=== PATIENT | female | born 1975 | race Caucasian/White ===

== ENCOUNTER 2016-08-09 19:32 | Emergency (ER) | payer MEDICAID ==
[~2016-08-09] VITALS: Ht 162.6 cm; Wt 124.3 kg
[~2016-08-09 19:32] MED LIST: ACHYD1T PO; ALBU0.632 IH; ALBU17AE3; ALBU8.5H2 IH; ALPR2TAB2 PO; AMOX1TAB39 PO; AMPH20TA2 PO; CETI10CA PO; Docusate Sodium PO; ESZO1TAB2 PO; FLT05NA16 NS; HYDR-3730 PO; Ibuprofen PO; MNTL10T PO; NFPRILOC40 PO; NPR250TRX; PNT40TEC PO; PROP1TAB77; SMTR50T PO; TRAM-21 PO; VILA10TA PO; XANAX; ZLP10T PO
[2016-08-09] MEDS ORDERED: KETOROLAC 30 MG/ML VIAL IVP ONE (20:30)
[2016-08-09] MEDS ORDERED: DEXAMETHASONE 4 MG/ML SDV (DECADRON) IH ONE (20:45)
[2016-08-09] MEDS ORDERED: NS 100 ML (IVPB) BAG IV ONE (20:45)
[2016-08-09] MEDS ORDERED: RT-ALBUTEROL/IPRATROPIUM 3 ML (DUONEB) VIAL INH ONE (20:45)
[2016-08-09] MEDS ORDERED: IOHEXOL 350 MG/ML 150 ML (OMNIPAQUE 350) VIAL IV ONE (20:45)
--- NOTE | 2016-08-09 21:11 | Diagnostic Imaging Report ---
INDICATION: Chest pain and cough PA and lateral chest obtained at 9:10 p.m. Heart and mediastinal silhouette are normal in appearance. There is question of some minimal infiltrate in the left lung base posteriorly, best seen on the lateral view. There is no pneumothorax or pleural fluid. IMPRESSION: Question minimal infiltrate in left lung base posteriorly, best seen on the lateral view. Poor inspiration. No pneumothorax or pleural fluid. Dictated by: Dictated on workstation # [id number]
--- NOTE | 2016-08-09 21:39 | Diagnostic Imaging Report ---
INDICATION: Cough and left-sided chest pain CT chest, abdomen, and pelvis obtained without IV contrast. CT chest findings: There are no enlarged mediastinal or hilar nodes seen without contrast. There are no enlarged axillary nodes. There is no pleural or pericardial fluid. There is no overt bony abnormality in the chest. Lung parenchymal windows demonstrated no evidence of infiltrate and the area questioned on the chest x-ray is not apparent on this study. CT abdomen and pelvis findings: The liver shows no focal mass. There is a calcified granuloma in the liver. There is evidence of previous cholecystectomy. Spleen, adrenals, and pancreas are normal. The kidneys bilaterally are unremarkable. There is a small fat-containing ventral hernia just to the right of midline. The visualized bowel loops are unremarkable. Patient appears to have had prior hysterectomy. IMPRESSION: CT chest shows no focal abnormality. The area in question on the chest x-ray shows no corresponding abnormality on CT and therefore is likely artifactual. There is no acute process in the chest. CT of the abdomen and pelvis demonstrates evidence of previous cholecystectomy and hysterectomy. There is a calcified granuloma in the liver. There is no acute inflammatory process or abnormal fluid collection. There is a small ventral hernia in the anterior abdominal wall containing fat. Dictated by: Dictated on workstation # [id number]
[2016-08-09] MEDS ORDERED: BENZ-13 PO (21:51)
[2016-08-09] MEDS ORDERED: D-ME118S7 PO (21:51)
[2016-08-09] MEDS ORDERED: TRAM-42 PO (21:51)
--- NOTE | 2016-08-09 21:51 | ED General ---
General Chief Complaint: Chest Wall/Rib Pain Stated Complaint: PAIN COUGHING Nursing Triage Note: Stated she was coughing 4 days ago and had sharp pain to left upper abd quad. States the pain is cont but increases with coughing. S/O states that that the pt shakes when coughing and urinated on herself because of the pain. Nursing Sepsis Screen: No Definite Risk Source of Information: Patient, Other (MALE S.O. TRIES TO DO ALL TALKING FOR PT ) History of Present Illness Time Seen by Provider: 20:20 Initial Comments PT ARRIVES VIA POV FROM HOME STATES SHE HAS HAD A NON-PRODUCTIVE COUGH X 2 WEEKS, WORSE X 4 DAYS STATES COUGHING CAUSES SEVERE PAIN IN UPPER ABDOMEN, ESPECIALLY ON THE LEFT SIDE AND THINKS THIS AREA IS SWOLLEN--BEGAN AROUND 1500 TODAY. PAIN IS MOSTLY WITH COUGHING AND IS SHARP AND SEVERE WITH COUGHING, BUT CONSTANT DULL ACHE IN AREA WELL NO FEVER NO CHEST PAIN PT HAS COPD AND ASTHMA--USES ADVAIR, SPIRIVA, COMBIVENT, ALBUTEROL, FLOVENT INHALERS, AND ALBUTEROL NEBULIZER--STATES SHE LAST USED THEM AT LEAST 5 HOURS AGO. PT CONTINUES TO SMOKE 1 PPD WOKE UP PRIOR TO ARRIVAL AND WAS HAVING SEVERE PAIN IN UPPER ABDOMEN FROM COUGHING AND RUSHED STRAIGHT HERE, DID NOT USE INHALERS OR NEBULIZER PRIOR TO ARRIVAL PT ALSO HAS PHENERGAN WITH CODEINE FOR COUGH--BUT RAN OUT AT 1500 TODAY STATES SHE SHAKES AND HAS URINATED ON HERSELF DUE TO COUGHING AND THE PAIN PT HAS HYDROCODONE AT HOME BUT DID NOT TAKE ANY FOR THIS PAIN ADDITIONALLY, PT TAKES SINGULAIR, ZYRTEC AND FLONASE PT WAS SEEN BY DR. HELLER A COUPLE OF WEEKS AGO FOR THIS PROBLEM AND STATES ONE OF HER INHALERS WAS INCREASED, BUT HAS NO IDEA WHICH ONE--WAS GIVEN RX FOR PHENERGAN WITH CODEINE SAW DR. CALLAHAN'S LINEMAN A CLASS YESTERDAY FOR THIS PROBLEM AND WAS GIVEN RX FOR AUGMENTIN AND PREDNISONE 10 MG DAILY PCP: DR. HELLER CAGE CASHIER: DR. CALLAHAN Allergies and Home Medications Allergies Coded Allergies: azithromycin (Unverified Allergy, Unknown, RASH, 08/09/16) cefdinir (Verified Allergy, Unknown, 08/09/16) ciprofloxacin (Verified Allergy, Unknown, 08/09/16) thiopental (Unverified Allergy, Unknown, 08/09/16) Home Medications Albuterol 8.5 Gm Hfa.aer.ad, 2 PUFF IH BID, (Reported) Albuterol Sulfate 0.63 Mg/3 Ml Vial.neb, 1 EACH IH Q 4 - 6 HRS PRN PRN for SHORTNESS OF BREATH, (Reported) PRN SHORTNESS OF BREATH Alprazolam 2 Mg Tablet, 2 MG PO QID, (Reported) Amox Tr/Potassium Clavulanate 1 Each Tab.sr.12h, 1 EACH PO BID, (Reported) Amphet Asp/Amphet/D-Amphet 20 Mg Tablet, 20 MG PO BID, (Reported) Benzonatate 100 Mg Capsule, 1-2 TAB PO TID, #30 Prescribed by: MATY RADFORD on 08/09/162150 Cetirizine Hcl 10 Mg Capsule, 10 MG PO DAILY, (Reported) D-Methorphan Hb/Prometh HCl 118 Ml Syrup, 5-10 ML PO Q4H, #120 Prescribed by: MATY RADFORD on 08/09/162150 Eszopiclone 1 Mg Tablet, 1 MG PO HS PRN for SLEEP, (Reported) Fluticasone Propionate 16 Gm [place], 2 SPRAYS NS DAILY, (Reported) Hydrocodone Bit/Acetaminophen 1 Ea Tab, 1-2 EA PO Q4H PRN for MORE SEVERE PAIN, #60 Prescribed by: BRIANDA DALY on 04/04/14 0751 Hydrocodone/Acetaminophen 1 Each Tablet, 1 EACH PO BID, (Reported) Montelukast Sodium 10 Mg Tab, 10 MG PO DAILY, (Reported) Pantoprazole Sod 40 Mg Tab, 40 MG PO DAILY, (Reported) Prednisone 10 Mg Tab, 0 PO UD, #30 40 MG DAILY X 3 DAYS, 30 MG DAILY X 3 DAYS, 20 MG DAILY X 3 DAYS, 10 MG DAILY X 3 DAYS Prescribed by: MATY RADFORD on 08/09/162311 Sumatriptan Succinate 50 Mg Tablet, 0 PO UD, (Reported) 1 TAB AT ONSET OF ELIZABETH, MAY REPEAT X 1 IN 2 HOURS Tramadol HCl 50 Mg Tablet, 50 MG PO Q4H, #20 Prescribed by: MATY RADFORD on 08/09/162150 Tramadol Hcl 50 Mg Tablet, 50 MG PO BID, (Reported) [Docusate Sodium] 100 MG CAP, 100 MG PO BID, #60 Prescribed by: BRIANDA DALY on 04/04/14 0751 [Ibuprofen] 800 MG TAB, 800 MG PO Q6HR, #60 Prescribed by: BRIANDA DALY on 04/04/14 0751 Constitutional: no symptoms reported, No chills, No diaphoresis, No dizziness, No fever EENTM: no symptoms reported Respiratory: see HPI, cough, short of breath, wheezing Cardiovascular: no symptoms reported Gastrointestinal: no symptoms reported, abdominal pain, No nausea, No vomiting Genitourinary: see HPI, No dysuria, incontinence Musculoskeletal: no symptoms reported Skin: no symptoms reported Psychiatric/Neurological: No Symptoms Reported Hematologic/Lymphatic: No Symptoms Reported Past Rhpripa-Jselyk-Uflmhx Hx Patient Social History Alcohol Use: Denies Use Recreational Drug Use: No Smoking Status: Current Everyday Smoker (1 PPD) Type Used: Cigarettes 2nd Hand Smoke Exposure: Yes Recent Foreign Travel: No Contact w/Someone Who Travel: No Recent Infectious Disease Expo: No Recent Hopitalizations: No Immunizations Up To Date Tetanus Booster (TDap): Less than 5yrs Seasonal Allergies Seasonal Allergies: Yes Surgeries HX Surgeries: Yes (CERCLAGE X3, D&C, EGD, HYST/OVARIES INTACT) Surgeries: Gallbladder, Hysterectomy Respiratory Hx Respiratory Disorders: Yes Respiratory Disorders: Asthma, Chronic Bronchitis, COPD Cardiovascular Hx Cardiac Disorders: No Neurological Hx Neurological Disorders: Yes Neurological Disorders: Headaches /Migraines Reproductive System Hx Reproductive Disorders: Yes (DUB) Female Reproductive Disorders: Menstrual Problems SHIRT FOLDER History: Hysterectomy Genitourinary Hx Genitourinary Disorders: No Gastrointestinal Hx Gastrointestinal Disorders: Yes (freq nausea) Gastrointestinal Disorders: Chronic Constipation (FROM NARCOTIC USE) Musculoskeletal Hx Musculoskeletal Disorders: Yes (MUSCLE PAIN) Endocrine Hx Endocrine Disorders: Yes (MORBID OBESITY) HEENT HX ENT Disorders: Yes (BROKEN TEETH) Cancer Hx Cancer: No Psychosocial Hx Psychiatric Problems: Yes Behavioral Health Disorders: ADD/ADHD, Anxiety, Depression Integumentary HX Skin/Integumentary Disorder: No Blood Transfusions Hx Blood Disorders: No Physical Exam Vital Signs Vital Sign - Last 12Hours 08/09/16 19:57 Temp 97.6 Pulse 70 Resp 20 B/P (MAP) 114/62 Pulse Ox 93 Capillary Refill : Less Than 3 Seconds General Appearance: No Apparent Distress, Obese, Other (VERY DRAMATIC. REEKS OF CIGARETTES) HEENT: PERRL/EOMI Neck: Full Range of Motion, Normal Inspection, Non Tender, Supple Respiratory: No Accessory Muscle Use, No Respiratory Distress, Wheezing ( DIFFUSE COARSE EXPIRATORY WHEEZING IN ALL LUNG ROSE) Cardiovascular: Regular Rate, Rhythm, No Edema, No Murmur Gastrointestinal: Tenderness (EPIGASTRIC AND RUQ), Other (EXAM LIMITED DUE TO BODY HABITUS) Extremity: Normal Range of Motion, No Calf Tenderness, No Pedal Edema Neurologic/Psychiatric: Alert, Oriented x3, No Motor/Sensory Deficits, superintendent menagerie II- XII Norm as Tested Skin: Normal Color, Warm/Dry, Tattoos/Piercings (TATTOOS) Progress/Results/Core Measures Results/Orders My Orders Orders - MATY RADFORD DO Saline Lock/Iv-Start (08/09/16 20:30) Monitor-Rhythm Ecg Trace Only (08/09/16 20:30) Chest Pa/Lat (2 View) (08/09/16 20:30) Ketorolac Injection (Toradol Injection) (08/09/16 20:30) Albuterol/Ipra Inhalation Soln (Duoneb I (08/09/16 20:45) Dexamethasone Injection (Decadron Inject (08/09/16 20:45) Rt Request For Service (08/09/16 20:31) Svn Sm Volume Nebulizer Rt-Rfs (08/09/16 20:31) Iohexol Injection (Omnipaque 350 Mg/Ml 1 (08/09/16 20:45) Ns (Ivpb) (Sodium Chloride 0.9% Ivpb Bag (08/09/16 20:45) Ct Chest/Abdomen/Pelvis Wo (08/09/16 20:30) Medications Given in ED Current Medications Medications Dose Ordered Sig/Bright Route Start Time Stop Time Status Last Admin Dose Admin Albuterol/ Ipratropium 3 ml ONCE ONCE INH 08/09/16 20:45 08/09/16 20:46 DC 08/09/16 21:48 3 ML Dexamethasone Sodium Phosphate 20 mg ONCE ONCE IH 08/09/16 20:45 08/09/16 20:46 DC 08/09/16 21:48 20 MG Vital Signs/I&O Vital Sign - Last 12Hours 08/09/16 08/09/16 08/09/16 19:57 21:49 22:10 Temp 97.6 98.0 Pulse 70 100 Resp 20 20 B/P (MAP) 114/62 Pulse Ox 93 94 95 Blood Pressure Mean: 79 Progress Note : Progress Note PT REFUSED IV STICK/ LAB AND IV CONTRAST FOR CT DECREASE IN WHEEZING AFTER NEBULIZER TREATMENT Diagnostic Imaging Comments CXR--LIMITED STUDY, QUESTIONABLE LLL INFILTRATE--PENDING CT RESULTS--PER RADIOLOGIST REPORT @ 2127 CT CHEST/ABDOMEN/PELVIS--NO ACUTE PROCESS, SMALL VENTRAL HERNIA, CONTAINING FAT , ABOVE UMBILICUS--PER RADIOLOGIST REPORT @ 2139 Reviewed: Reviewed by Me Departure Impression Impression: Primary Impression: COPD (chronic obstructive pulmonary disease) with acute bronchitis Additional Impressions: Tobacco use Abdominal wall strain Hernia of anterior abdominal wall Disposition: HOME, SELF-CARE Condition: Stable Departure-Patient Inst. Referrals: MATY HELLER MD (PCP/Family) Primary Care Physician Patient Instructions: Abdominal Muscle Strain (DC), Abdominal Wall Hernias, Acute Bronchitis, Adult (DC), COPD Including Emphysema (DC) Add. Discharge Instructions: USE YOUR INHALERS AND NEBULIZER PRESCRIBED CONTINUE AUGMENTIN 875 MG TWICE A DAY X 10 DAYS INCREASE YOUR PREDNISONE TO 40 MG DAILY FOR 3 DAYS, THEN 30 MG DAILY FOR 3 DAYS , THEN 20 MG DAILY FOR 3 DAYS, THEN 10 MG DAILY X 3 DAYS CONTINUE ALL YOUR REGULAR MEDICATIONS PRESCRIBED FOLLOW UP WITH DR. CALLAHAN ON THURSDAY IF NO BETTER All discharge instructions reviewed with patient and/or family. Voiced understanding. Scripts Prednisone (Prednisone) 10 Mg Tab 0 PO UD, #30 TAB 40 MG DAILY X 3 DAYS, 30 MG DAILY X 3 DAYS, 20 MG DAILY X 3 DAYS, 10 MG DAILY X 3 DAYS Prov: MATY RADFORD DO 08/09/16 Tramadol HCl (Ultram) 50 Mg Tablet 50 MG PO Q4H, #20 TAB Prov: MATY RADFORD DO 08/09/16 Benzonatate (Tessalon Perle) 100 Mg Capsule 1-2 TAB PO TID for Cough, #30 CAP Prov: MATY RADFORD DO 08/09/16 D-Methorphan Hb/Prometh HCl (Promethazine-Dm Syrup) 118 Ml Syrup 5-10 ML PO Q4H for Cough, #120 ML Prov: MATY RADFORD DO 08/09/16 MATY RADFORD DO Aug 09, 2016 21:51
[2016-08-09 22:10] VITALS: BP 141/63
[2016-08-09] MEDS ORDERED: PRD10T PO (23:12)
--- OUTSIDE RECORDS SUMMARY | 2016-09-14 05:29 | XMS REPORT | Continuity of Care Document ---
Author Author [facility]ly [facility] Address Unknown Phone Unavailable Allergies Active Description Code Type Severity Reaction Onset Reported/Identified Relationship to Patient Clinical Status Yes Omnicef Drug Allergy N/A N/A 05/31/2008 Yes Omnicef Drug Allergy 05/31/2008 Yes Cipro Drug Allergy N/A N/A 06/15/2008 Yes Zithromax Drug Allergy N/A N/A 06/15/2008 Yes Cipro Drug Allergy 06/15/2008 Yes Zithromax Drug Allergy 06/15/2008 Yes Strattera 10 mg capsule Drug Allergy N/A N/A 04/11/2013 Yes azithromycin [id number] Drug Allergy Unknown RASH 08/09/2016 Yes cefdinir [id number] Drug Allergy Unknown N/A 08/09/2016 Yes ciprofloxacin [id number] Drug Allergy Unknown N/A 08/09/2016 Yes thiopental [id number] Drug Allergy Unknown N/A 08/09/2016 Medications Problems Date Dx Coded Attending Type Code Diagnosis Diagnosed By 11/10/2007 ANDREI CORTES APRN 477.9 Hayfever 11/10/2007 ANDREI CORTES APRN 786.2 Cough 11/10/2007 477.9 Hayfever 11/10/2007 786.2 Cough 11/10/2007 477.9 Hayfever 11/10/2007 786.2 Cough 11/10/2007 477.9 Hayfever 11/10/2007 786.2 Cough 11/10/2007 477.9 Hayfever 11/10/2007 786.2 Cough 11/10/2007 477.9 Hayfever 11/10/2007 786.2 Cough 11/10/2007 477.9 Hayfever 11/10/2007 786.2 Cough 11/10/2007 ANDREI CORTES APRN 477.9 Hayfever 11/10/2007 ANDREI CORTES APRN 786.2 Cough 11/10/2007 CORTESJT FULTONANDREI 477.9 Hayfever 11/10/2007 CORTES APRN, ANDREI VANESSA 786.2 Cough 11/10/2007 NICHOLSON DO, EROS K 477.9 Hayfever 11/10/2007 NICHOLSON DO, EROS K 786.2 Cough 11/10/2007 NICHOLSON DO, EROS K 477.9 Hayfever 11/10/2007 NICHOLSON DO, EROS K 786.2 Cough 11/10/2007 LATRICIA HURTADO MD 477.9 Hayfever 11/10/2007 LATRICIA HURTADO MD 786.2 Cough 11/10/2007 MADL VIDEO CAMERA OPERATOR, BIBI L 477.9 Hayfever 11/10/2007 MADL VIDEO CAMERA OPERATOR, BIBI L 786.2 Cough 11/10/2007 NICHOLSON DO, EROS K 477.9 Hayfever 11/10/2007 NICHOLSON DO, EROS K 786.2 Cough 11/10/2007 NICHOLSON DO, EROS K 477.9 Hayfever 11/10/2007 NICHOLSON DO, EROS K 786.2 Cough 11/10/2007 MADL VIDEO CAMERA OPERATOR, BIBI L 477.9 Hayfever 11/10/2007 MADL VIDEO CAMERA OPERATOR, BIBI L 786.2 Cough 11/10/2007 MADL VIDEO CAMERA OPERATOR, BIBI L 477.9 Hayfever 11/10/2007 MADL VIDEO CAMERA OPERATOR, BIBI L 786.2 Cough 11/10/2007 BROOK FULTON, CAROLE J 477.9 Hayfever 11/10/2007 BROOK FULTON, CAROLE J 786.2 Cough 11/10/2007 MOISES FLORES, ZACH Robin 477.9 Hayfever 11/10/2007 MOISES FLORES, ZACH Robin 786.2 Cough 05/26/2008 SOPHIA FULTON ANDREI VANESSA 466.0 Acute Bronchitis 05/26/2008 466.0 Acute Bronchitis 05/26/2008 466.0 Acute Bronchitis 05/26/2008 466.0 Acute Bronchitis 05/26/2008 466.0 Acute Bronchitis 05/26/2008 466.0 Acute Bronchitis 05/26/2008 466.0 Acute Bronchitis 05/26/2008 SOPHIA [place] ANDREI VANESSA 466.0 Acute Bronchitis 05/26/2008 S[place]IA [place] ANDREI RASHEEDA 466.0 Acute Bronchitis 05/26/2008 NICHOLSON DO, EROS K 466.0 Acute Bronchitis 05/26/2008 NICHOLSON DO, EROS K 466.0 Acute Bronchitis 05/26/2008 BRYANT ADAMS, LATRICIA 466.0 Acute Bronchitis 05/26/2008 MADL VIDEO CAMERA OPERATOR, BIBI L 466.0 Acute Bronchitis 05/26/2008 NICHOLSON DO, EROS K 466.0 Acute Bronchitis 05/26/2008 NICHOLSON DO, EROS K 466.0 Acute Bronchitis 05/26/2008 MADL VIDEO CAMERA OPERATOR, BIBI L 466.0 Acute Bronchitis 05/26/2008 MADL VIDEO CAMERA OPERATOR, BIBI L 466.0 Acute Bronchitis 05/26/2008 BROOK FULTON, CAROLE Henderson 466.0 Acute Bronchitis 05/26/2008 MOISES FLORES, ZACH Robin 466.0 Acute Bronchitis 06/15/2008 SOPHIA [place] ANDREI RASHEEDA 300.02 GENERALIZED ANXIETY DISORDER 06/15/2008 ANDREI CORTES APRN 616.10 Vaginitis Nonspecific 06/15/2008 SOPHIA [place] ANDREI RASHEEDA V72.31 Cervix Sample Taken For Pap Smear 06/15/2008 SOPHIA [place] ANDREI RASHEEDA V74.5 Visit For: Screening Exam Bact/ spirochetal Venereal Disease 06/15/2008 300.02 GENERALIZED ANXIETY DISORDER 06/15/2008 616.10 Vaginitis Nonspecific 06/15/2008 V72.31 Cervix Sample Taken For Pap Smear 06/15/2008 V74.5 Visit For: Screening Exam Bact/spirochetal Venereal Disease 06/15/2008 300.02 GENERALIZED ANXIETY DISORDER 06/15/2008 616.10 Vaginitis Nonspecific 06/15/2008 V72.31 Cervix Sample Taken For Pap Smear 06/15/2008 V74.5 Visit For: Screening Exam Bact/spirochetal Venereal Disease 06/15/2008 300.02 GENERALIZED ANXIETY DISORDER 06/15/2008 616.10 Vaginitis Nonspecific 06/15/2008 V72.31 Cervix Sample Taken For Pap Smear 06/15/2008 V74.5 Visit For: Screening Exam Bact/spirochetal Venereal Disease 06/15/2008 300.02 GENERALIZED ANXIETY DISORDER 06/15/2008 616.10 Vaginitis Nonspecific 06/15/2008 V72.31 Cervix Sample Taken For Pap Smear 06/15/2008 V74.5 Visit For: Screening Exam Bact/spirochetal Venereal Disease 06/15/2008 300.02 GENERALIZED ANXIETY DISORDER 06/15/2008 616.10 Vaginitis Nonspecific 06/15/2008 V72.31 Cervix Sample Taken For Pap Smear 06/15/2008 V74.5 Visit For: Screening Exam Bact/spirochetal Venereal Disease 06/15/2008 300.02 GENERALIZED ANXIETY DISORDER 06/15/2008 616.10 Vaginitis Nonspecific 06/15/2008 V72.31 Cervix Sample Taken For Pap Smear 06/15/2008 V74.5 Visit For: Screening Exam Bact/spirochetal Venereal Disease 06/15/2008 SOPHIA [place] ANDREI AVNESSA 300.02 GENERALIZED ANXIETY DISORDER 06/15/2008 SOP[place]IA [place] ANDREI VANESSA 616.10 Vaginitis Nonspecific 06/15/2008 SOPHIA [place] ANDREI VANESSA V72.31 Cervix Sample Taken For Pap Smear 06/15/2008 SOPHIA [place] ANDREI VANESSA V74.5 Visit For: Screening Exam Bact/ spirochetal Venereal Disease 06/15/2008 SOPHIA [place] ANDREI VANESSA 300.02 GENERALIZED ANXIETY DISORDER 06/15/2008 SOP[place]IA [place] ANDREI VANESSA 616.10 Vaginitis Nonspecific 06/15/2008 SOPHIA [place] ANDREI VANESSA V72.31 Cervix Sample Taken For Pap Smear 06/15/2008 SOPHIA [place] ANDREI VANESSA V74.5 Visit For: Screening Exam Bact/ spirochetal Venereal Disease 06/15/2008 EROS NICHOLSON DO 300.02 GENERALIZED ANXIETY DISORDER 06/15/2008 EROS NICHOLSON DO K 616.10 Vaginitis Nonspecific 06/15/2008 ISA NICHOLSON DOA K V72.31 Cervix Sample Taken For Pap Smear 06/15/2008 ISA NICHOLSON DOA K V74.5 Visit For: Screening Exam Bact/spirochetal Venereal Disease 06/15/2008 ISA NICHOLSON DOA K 300.02 GENERALIZED ANXIETY DISORDER 06/15/2008 ISA NICHOLSON DOA K 616.10 Vaginitis Nonspecific 06/15/2008 ISA NICHOLSON DOA K V72.31 Cervix Sample Taken For Pap Smear 06/15/2008 ISA NICHOLSON DOA K V74.5 Visit For: Screening Exam Bact/spirochetal Venereal Disease 06/15/2008 LATRICIA HURTADO MD 300.02 GENERALIZED ANXIETY DISORDER 06/15/2008 LATRICIA HURTADO MD 616.10 Vaginitis Nonspecific 06/15/2008 LATRICIA HURTADO MD V72.31 Cervix Sample Taken For Pap Smear 06/15/2008 LATRICIA HURTADO MD V74.5 Visit For: Screening Exam Bact/spirochetal Venereal Disease 06/15/2008 VEENAL VIDEO CAMERA OPERATOR, BIBI L 300.02 GENERALIZED ANXIETY DISORDER 06/15/2008 MADL VIDEO CAMERA OPERATOR, BIBI L 616.10 Vaginitis Nonspecific 06/15/2008 MADL VIDEO CAMERA OPERATOR, BIBI L V72.31 Cervix Sample Taken For Pap Smear 06/15/2008 JOSE FULTON BIBI L V74.5 Visit For: Screening Exam Bact/spirochetal Venereal Disease 06/15/2008 EROS NICHOLSON DO K 300.02 GENERALIZED ANXIETY DISORDER 06/15/2008 EROS NICHOLSON DO K 616.10 Vaginitis Nonspecific 06/15/2008 ISA NICHOLSON DOA K V72.31 Cervix Sample Taken For Pap Smear 06/15/2008 EROS NICHOLSON DO K V74.5 Visit For: Screening Exam Bact/spirochetal Venereal Disease 06/15/2008 EROS NICHOLSON DO K 300.02 GENERALIZED ANXIETY DISORDER 06/15/2008 ISA NICHOLSON DOA K 616.10 Vaginitis Nonspecific 06/15/2008 ISA NICHOLSON DOA K V72.31 Cervix Sample Taken For Pap Smear 06/15/2008 EROS NICHOLSON DO K V74.5 Visit For: Screening Exam Bact/spirochetal Venereal Disease 06/15/2008 VEENAL VIDEO CAMERA OPERATOR, BIBI L 300.02 GENERALIZED ANXIETY DISORDER 06/15/2008 JOSE VIDEO CAMERA OPERATOR, BIBI L 616.10 Vaginitis Nonspecific 06/15/2008 MADL VIDEO CAMERA OPERATOR, BIBI L V72.31 Cervix Sample Taken For Pap Smear 06/15/2008 JOSE VIDEO CAMERA OPERATOR, BIBI L V74.5 Visit For: Screening Exam Bact/spirochetal Venereal Disease 06/15/2008 JOSE FULTON BIBI L 300.02 GENERALIZED ANXIETY DISORDER 06/15/2008 JOSE JEWEL FULTONA Blanca 616.10 Vaginitis Nonspecific 06/15/2008 BIBI GARCIA APRN V72.31 Cervix Sample Taken For Pap Smear 06/15/2008 VEENABIBI Rios APRN V74.5 Visit For: Screening Exam Bact/spirochetal Venereal Disease 06/15/2008 CAROLE DOE APRN 300.02 GENERALIZED ANXIETY DISORDER 06/15/2008 PRATIBHA DOE APRNA J 616.10 Vaginitis Nonspecific 06/15/2008 PRATIBHA DOE APRNA J V72.31 Cervix Sample Taken For Pap Smear 06/15/2008 CAROLE DOE APRN J V74.5 Visit For: Screening Exam Bact/ spirochetal Venereal Disease 06/15/2008 MOISES FLORES, ZACH Robin 300.02 GENERALIZED ANXIETY DISORDER 06/15/2008 MOISES PHD, ZACH A 616.10 Vaginitis Nonspecific 06/15/2008 MOISES FLORES, ZACH A V72.31 Cervix Sample Taken For Pap Smear 06/15/2008 MOISES FLORES, ZACH Robin V74.5 Visit For: Screening Exam Bact/ spirochetal Venereal Disease 07/12/2008 ANDREI CORTES APRN 078.11 Warts Genital 07/12/2008 078.11 Warts Genital 07/12/2008 078.11 Warts Genital 07/12/2008 078.11 Warts Genital 07/12/2008 078.11 Warts Genital 07/12/2008 078.11 Warts Genital 07/12/2008 078.11 Warts Genital 07/12/2008 ANDREI CORTES APRN 078.11 Warts Genital 07/12/2008 ANDREI CORTES APRN 078.11 Warts Genital 07/12/2008 EROS NICHOLSON DO 078.11 Warts Genital 07/12/2008 EROS NICHOLSON DO 078.11 Warts Genital 07/12/2008 LATRICIA HURTADO MD 078.11 Warts Genital 07/12/2008 BIBI GARCIA APRN 078.11 Warts Genital 07/12/2008 NICHOLSON DO, EROS K 078.11 Warts Genital 07/12/2008 NICHOLSON DO, EROS K 078.11 Warts Genital 07/12/2008 MADL VIDEO CAMERA OPERATOR, BIBI L 078.11 Warts Genital 07/12/2008 MADL VIDEO CAMERA OPERATOR, BIBI L 078.11 Warts Genital 07/12/2008 BROOK F[place]ON CAROLE J 078.11 Warts Genital 07/12/2008 MOISES FLORES, ZACH Robin 078.11 Warts Genital 09/14/2009 CORTES APRN, ANDREI VANESSA 461.0 Acute Maxillary Sinusitis 09/14/2009 [place] ANDREI VANESSA 493.90 ASTHMA UNSPECIFIED 09/14/2009 461.0 Acute Maxillary Sinusitis 09/14/2009 493.90 ASTHMA UNSPECIFIED 09/14/2009 461.0 Acute Maxillary Sinusitis 09/14/2009 493.90 ASTHMA UNSPECIFIED 09/14/2009 461.0 Acute Maxillary Sinusitis 09/14/2009 493.90 ASTHMA UNSPECIFIED 09/14/2009 461.0 Acute Maxillary Sinusitis 09/14/2009 493.90 ASTHMA UNSPECIFIED 09/14/2009 461.0 Acute Maxillary Sinusitis 09/14/2009 493.90 ASTHMA UNSPECIFIED 09/14/2009 461.0 Acute Maxillary Sinusitis 09/14/2009 493.90 ASTHMA UNSPECIFIED 09/14/2009 SOPHIA [place]OL[place], ANDREI KATZH 461.0 Acute Maxillary Sinusitis 09/14/2009 CORTES DONALDO, ANDREI KATZH 493.90 ASTHMA UNSPECIFIED 09/14/2009 SOPHIA [place] ANDREI KATZH 461.0 Acute Maxillary Sinusitis 09/14/2009 SOPHIA [place]OL[place], ANDREI KATZH 493.90 ASTHMA UNSPECIFIED 09/14/2009 NICHOLSON DO, EROS K 461.0 Acute Maxillary Sinusitis 09/14/2009 NICHOLSON DO, EROS K 493.90 ASTHMA UNSPECIFIED 09/14/2009 NICHOLSON DO, EROS K 461.0 Acute Maxillary Sinusitis 09/14/2009 NICHOLSON DO, EROS K 493.90 ASTHMA UNSPECIFIED 09/14/2009 LATRICIA HURTADO MD 461.0 Acute Maxillary Sinusitis 09/14/2009 LATRICIA HURTADO MD 493.90 ASTHMA UNSPECIFIED 09/14/2009 MADL VIDEO CAMERA OPERATOR, BIBI L 461.0 Acute Maxillary Sinusitis 09/14/2009 MADL VIDEO CAMERA OPERATOR, BIBI L 493.90 ASTHMA UNSPECIFIED 09/14/2009 NICHOLSON DO, EROS K 461.0 Acute Maxillary Sinusitis 09/14/2009 NICHOLSON DO, EROS K 493.90 ASTHMA UNSPECIFIED 09/14/2009 NICHOLSON DO, EROS K 461.0 Acute Maxillary Sinusitis 09/14/2009 NICHOLSON DO, EROS K 493.90 ASTHMA UNSPECIFIED 09/14/2009 MADL VIDEO CAMERA OPERATOR, BIBI L 461.0 Acute Maxillary Sinusitis 09/14/2009 MADL VIDEO CAMERA OPERATOR, BIBI L 493.90 ASTHMA UNSPECIFIED 09/14/2009 MADL VIDEO CAMERA OPERATOR, BIBI L 461.0 Acute Maxillary Sinusitis 09/14/2009 MADL VIDEO CAMERA OPERATOR, BIBI L 493.90 ASTHMA UNSPECIFIED 09/14/2009 BROOK VIDEO CAMERA OPERATOR, CAROLE J 461.0 Acute Maxillary Sinusitis 09/14/2009 BROOK VIDEO CAMERA OPERATOR, CAROLE J 493.90 ASTHMA UNSPECIFIED 09/14/2009 MOISES PHD, ZACH A 461.0 Acute Maxillary Sinusitis 09/14/2009 MOISES PHD, ZACH A 493.90 ASTHMA UNSPECIFIED 02/20/2010 ANDREI CORTES APRN 780.79 Malaise And Fatigue 02/20/2010 780.79 Malaise And Fatigue 02/20/2010 780.79 Malaise And Fatigue 02/20/2010 780.79 Malaise And Fatigue 02/20/2010 780.79 Malaise And Fatigue 02/20/2010 780.79 Malaise And Fatigue 02/20/2010 780.79 Malaise And Fatigue 02/20/2010 ANDREI CORTES APRN 780.79 Malaise And Fatigue 02/20/2010 ANDREI CORTES APRN 780.79 Malaise And Fatigue 02/20/2010 NICHOLSON DO, EROS K 780.79 Malaise And Fatigue 02/20/2010 NICHOLSON DO, EROS K 780.79 Malaise And Fatigue 02/20/2010 LATRICIA HURTADO MD 780.79 Malaise And Fatigue 02/20/2010 VEENAL VIDEO CAMERA OPERATOR, BIBI L 780.79 Malaise And Fatigue 02/20/2010 NICHOLSON DO EROS K 780.79 Malaise And Fatigue 02/20/2010 NICHOLSON DO, EROS K 780.79 Malaise And Fatigue 02/20/2010 VEENAL VIDEO CAMERA OPERATORBIBI Ho 780.79 Malaise And Fatigue 02/20/2010 BIBI GARCIA APRN L 780.79 Malaise And Fatigue 02/20/2010 CAROLE DOE APRN 780.79 Malaise And Fatigue 02/20/2010 MOISES PHD, ZACH Robin 780.79 Malaise And Fatigue 08/01/2010 CORTES DONALDO ANDREI VANESSA 305.1 TOBACCO ABUSE 08/01/2010 CORTES VIDEO CAMERA OPERATOR, ANDREI VANESSA 491.21 Bronchitis Aecb 08/01/2010 305.1 TOBACCO ABUSE 08/01/2010 491.21 Bronchitis Aecb 08/01/2010 305.1 TOBACCO ABUSE 08/01/2010 491.21 Bronchitis Aecb 08/01/2010 305.1 TOBACCO ABUSE 08/01/2010 491.21 Bronchitis Aecb 08/01/2010 305.1 TOBACCO ABUSE 08/01/2010 491.21 Bronchitis Aecb 08/01/2010 305.1 TOBACCO ABUSE 08/01/2010 491.21 Bronchitis Aecb 08/01/2010 305.1 TOBACCO ABUSE 08/01/2010 491.21 Bronchitis Aecb 08/01/2010 SOPHIA TOLENTINONANDREIH 305.1 TOBACCO ABUSE 08/01/2010 [place] ANDREI KATZH 491.21 Bronchitis Aecb 08/01/2010 CORTES VIDEO CAMERA OPERATOR, ANDREI KATZH 305.1 TOBACCO ABUSE 08/01/2010 [place] ANDREI KATZH 491.21 Bronchitis Aecb 08/01/2010 NICHOLSON DO, EROS K 305.1 TOBACCO ABUSE 08/01/2010 NICHOLSON DO, EROS K 491.21 Bronchitis Aecb 08/01/2010 NICHOLSON DO, EROS K 305.1 TOBACCO ABUSE 08/01/2010 NICHOLSON DO, EROS K 491.21 Bronchitis Aecb 08/01/2010 LATRICIA HURTADO MD 305.1 TOBACCO ABUSE 08/01/2010 LATRICIA HURTADO MD 491.21 Bronchitis Aecb 08/01/2010 BIBI GARCIA APRN 305.1 TOBACCO ABUSE 08/01/2010 MADL VIDEO CAMERA OPERATOR, BIBI L 491.21 Bronchitis Aecb 08/01/2010 NICHOLSON DO, EROS K 305.1 TOBACCO ABUSE 08/01/2010 NICHOLSON DO, EROS K 491.21 Bronchitis Aecb 08/01/2010 NICHOLSON DO, EROS K 305.1 TOBACCO ABUSE 08/01/2010 NICHOLSON DO, EROS K 491.21 Bronchitis Aecb 08/01/2010 MADL VIDEO CAMERA OPERATOR, BIBI L 305.1 TOBACCO ABUSE 08/01/2010 MADL VIDEO CAMERA OPERATOR, BIBI L 491.21 Bronchitis Aecb 08/01/2010 MADL VIDEO CAMERA OPERATOR, BIBI L 305.1 TOBACCO ABUSE 08/01/2010 MADL VIDEO CAMERA OPERATOR, BIBI L 491.21 Bronchitis Aecb 08/01/2010 BROOK VIDEO CAMERA OPERATOR, CAROLE J 305.1 TOBACCO ABUSE 08/01/2010 BROOK DONALDO CAROLE J 491.21 Bronchitis Aecb 08/01/2010 MOISES FLORES, ZACH Robin 305.1 TOBACCO ABUSE 08/01/2010 MOISES FLORES, ZACH Robin 491.21 Bronchitis Aecb 09/24/2010 SOPHIA [place] ANDREI RASHEEDA 599.0 Urinary Tract Infection 09/24/2010 SOPHIA [place] ANDREI RASHEEDA 788.41 Urinary Frequency 09/24/2010 SOPHIA [place] ANDREI VANESSA 788.63 Urinary Urgency 09/24/2010 599.0 Urinary Tract Infection 09/24/2010 788.41 Urinary Frequency 09/24/2010 788.63 Urinary Urgency 09/24/2010 599.0 Urinary Tract Infection 09/24/2010 788.41 Urinary Frequency 09/24/2010 788.63 Urinary Urgency 09/24/2010 599.0 Urinary Tract Infection 09/24/2010 788.41 Urinary Frequency 09/24/2010 788.63 Urinary Urgency 09/24/2010 599.0 Urinary Tract Infection 09/24/2010 788.41 Urinary Frequency 09/24/2010 788.63 Urinary Urgency 09/24/2010 599.0 Urinary Tract Infection 09/24/2010 788.41 Urinary Frequency 09/24/2010 788.63 Urinary Urgency 09/24/2010 599.0 Urinary Tract Infection 09/24/2010 788.41 Urinary Frequency 09/24/2010 788.63 Urinary Urgency 09/24/2010 CORTES VIDEO CAMERA OPERATOR, ANDREI RASHEEDA 599.0 Urinary Tract Infection 09/24/2010 CORTES VIDEO CAMERA OPERATOR, ANDREI RASHEEDA 788.41 Urinary Frequency 09/24/2010 CORTES VIDEO CAMERA OPERATOR, ANDREI VANESSA 788.63 Urinary Urgency 09/24/2010 CORTES VIDEO CAMERA OPERATOR, ANDREI RASHEEDA 599.0 Urinary Tract Infection 09/24/2010 CORTES VIDEO CAMERA OPERATOR, ANDREI VANESSA 788.41 Urinary Frequency 09/24/2010 CORTES VIDEO CAMERA OPERATOR, ANDREI VANESSA 788.63 Urinary Urgency 09/24/2010 NICHOLSON DO, EROS K 599.0 Urinary Tract Infection 09/24/2010 NICHOLSON DO, EROS K 788.41 Urinary Frequency 09/24/2010 NICHOLSON DO, EROS K 788.63 Urinary Urgency 09/24/2010 NICHOLSON DO, EROS K 599.0 Urinary Tract Infection 09/24/2010 NICHOLSON DO, EROS K 788.41 Urinary Frequency 09/24/2010 NICHOLSON DO, EROS K 788.63 Urinary Urgency 09/24/2010 LATRICIA HURTADO MD 599.0 Urinary Tract Infection 09/24/2010 LATRICIA HURTADO MD 788.41 Urinary Frequency 09/24/2010 LATRICIA HURTADO MD 788.63 Urinary Urgency 09/24/2010 MADL VIDEO CAMERA OPERATOR, BIBI L 599.0 Urinary Tract Infection 09/24/2010 MADL VIDEO CAMERA OPERATOR, BIBI L 788.41 Urinary Frequency 09/24/2010 MADL VIDEO CAMERA OPERATOR, BIBI L 788.63 Urinary Urgency 09/24/2010 NICHOLSON DO, EROS K 599.0 Urinary Tract Infection 09/24/2010 NICHOLSON DO, EROS K 788.41 Urinary Frequency 09/24/2010 NICHOLSON DO, EROS K 788.63 Urinary Urgency 09/24/2010 NICHOLSON DO, EROS K 599.0 Urinary Tract Infection 09/24/2010 NICHOLSON DO, EROS K 788.41 Urinary Frequency 09/24/2010 NICHOLSON DO, EROS K 788.63 Urinary Urgency 09/24/2010 MADL VIDEO CAMERA OPERATOR, BIBI L 599.0 Urinary Tract Infection 09/24/2010 MADL VIDEO CAMERA OPERATOR, BIBI L 788.41 Urinary Frequency 09/24/2010 JEWEL GARCIA APRNA L 788.63 Urinary Urgency 09/24/2010 JEWEL GARCIA APRNA L 599.0 Urinary Tract Infection 09/24/2010 JOSE FULTON, BIBI L 788.41 Urinary Frequency 09/24/2010 MILLICENT GARCIA APRNNYA L 788.63 Urinary Urgency 09/24/2010 BROOK [place]ON, CAROLE J 599.0 Urinary Tract Infection 09/24/2010 BROOK VIDEO CAMERA OPERATOR, CAROLE J 788.41 Urinary Frequency 09/24/2010 BROOK VIDEO CAMERA OPERATOR, CAROLE J 788.63 Urinary Urgency 09/24/2010 MOISES PHD, ZACH A 599.0 Urinary Tract Infection 09/24/2010 MOISES PHD, ZACH A 788.41 Urinary Frequency 09/24/2010 MOISES PHD, ZACH A 788.63 Urinary Urgency 01/22/2011 SOPHIA FULTONANDREI 300.00 ANXIETY UNSPEC 01/22/2011 SOPHIA FULTONANDREI 789.01 Abdominal Pain Right Upper Quadrant 01/22/2011 CORTES VIDEO CAMERA OPERATORANDREI V01.9 Contact With Or Exposure To Unspecified Communicable Disease 01/22/2011 SOPHIA FULTONANDREI V68.1 ISSUE OF REPEAT PRESCRIPTIONS 01/22/2011 SOPHIA TOLENTINONANDREI V69.2 High-risk Sexual Behavior 01/22/2011 300.00 ANXIETY UNSPEC 01/22/2011 789.01 Abdominal Pain Right Upper Quadrant 01/22/2011 V01.9 Contact With Or Exposure To Unspecified Communicable Disease 01/22/2011 V68.1 ISSUE OF REPEAT PRESCRIPTIONS 01/22/2011 V69.2 High-risk Sexual Behavior 01/22/2011 300.00 ANXIETY UNSPEC 01/22/2011 789.01 Abdominal Pain Right Upper Quadrant 01/22/2011 V01.9 Contact With Or Exposure To Unspecified Communicable Disease 01/22/2011 V68.1 ISSUE OF REPEAT PRESCRIPTIONS 01/22/2011 V69.2 High-risk Sexual Behavior 01/22/2011 300.00 ANXIETY UNSPEC 01/22/2011 789.01 Abdominal Pain Right Upper Quadrant 01/22/2011 V01.9 Contact With Or Exposure To Unspecified Communicable Disease 01/22/2011 V68.1 ISSUE OF REPEAT PRESCRIPTIONS 01/22/2011 V69.2 High-risk Sexual Behavior 01/22/2011 300.00 ANXIETY UNSPEC 01/22/2011 789.01 Abdominal Pain Right Upper Quadrant 01/22/2011 V01.9 Contact With Or Exposure To Unspecified Communicable Disease 01/22/2011 V68.1 ISSUE OF REPEAT PRESCRIPTIONS 01/22/2011 V69.2 High-risk Sexual Behavior 01/22/2011 300.00 ANXIETY UNSPEC 01/22/2011 789.01 Abdominal Pain Right Upper Quadrant 01/22/2011 V01.9 Contact With Or Exposure To Unspecified Communicable Disease 01/22/2011 V68.1 ISSUE OF REPEAT PRESCRIPTIONS 01/22/2011 V69.2 High-risk Sexual Behavior 01/22/2011 300.00 ANXIETY UNSPEC 01/22/2011 789.01 Abdominal Pain Right Upper Quadrant 01/22/2011 V01.9 Contact With Or Exposure To Unspecified Communicable Disease 01/22/2011 V68.1 ISSUE OF REPEAT PRESCRIPTIONS 01/22/2011 V69.2 High-risk Sexual Behavior 01/22/2011 ANDREI CORTES APRN 300.00 ANXIETY UNSPEC 01/22/2011 ANDREI CORTES APRN 789.01 Abdominal Pain Right Upper Quadrant 01/22/2011 ANDREI CORTES APRN V01.9 Contact With Or Exposure To Unspecified Communicable Disease 01/22/2011 ANDREI CORTES APRN V68.1 ISSUE OF REPEAT PRESCRIPTIONS 01/22/2011 ANDREI CORTES APRN V69.2 High-risk Sexual Behavior 01/22/2011 ANDREI CORTES APRN 300.00 ANXIETY UNSPEC 01/22/2011 ANDREI CORTES APRN 789.01 Abdominal Pain Right Upper Quadrant 01/22/2011 ANDREI CORTES APRN V01.9 Contact With Or Exposure To Unspecified Communicable Disease 01/22/2011 ANDREI CORTES APRN V68.1 ISSUE OF REPEAT PRESCRIPTIONS 01/22/2011 ANDREI CORTES APRN V69.2 High-risk Sexual Behavior 01/22/2011 NICHOLSON DO, EROS K 300.00 ANXIETY UNSPEC 01/22/2011 NICHOLSON DO, EROS K 789.01 Abdominal Pain Right Upper Quadrant 01/22/2011 NICHOLSON DO, EROS K V01.9 Contact With Or Exposure To Unspecified Communicable Disease 01/22/2011 NICHOLSON DO, EROS K V68.1 ISSUE OF REPEAT PRESCRIPTIONS 01/22/2011 NICHOLSON DO, EROS K V69.2 High-risk Sexual Behavior 01/22/2011 NICHOLSON DO, EROS K 300.00 ANXIETY UNSPEC 01/22/2011 NICHOLSON DO, EROS K 789.01 Abdominal Pain Right Upper Quadrant 01/22/2011 NICHOLSON DO, EROS K V01.9 Contact With Or Exposure To Unspecified Communicable Disease 01/22/2011 NICHOLSON DO, EROS K V68.1 ISSUE OF REPEAT PRESCRIPTIONS 01/22/2011 NICHOLSON DO, EROS K V69.2 High-risk Sexual Behavior 01/22/2011 LATRICIA HURTADO MD 300.00 ANXIETY UNSPEC 01/22/2011 LATRICIA HURTADO MD 789.01 Abdominal Pain Right Upper Quadrant 01/22/2011 LATRICIA HURTADO MD V01.9 Contact With Or Exposure To Unspecified Communicable Disease 01/22/2011 LATRICIA HURTADO MD V68.1 ISSUE OF REPEAT PRESCRIPTIONS 01/22/2011 LATRICIA HURTADO MD V69.2 High-risk Sexual Behavior 01/22/2011 MADL VIDEO CAMERA OPERATOR, BIBI L 300.00 ANXIETY UNSPEC 01/22/2011 JOSE VIDEO CAMERA OPERATOR, BIBI L 789.01 Abdominal Pain Right Upper Quadrant 01/22/2011 JOSE VIDEO CAMERA OPERATOR, BIBI L V01.9 Contact With Or Exposure To Unspecified Communicable Disease 01/22/2011 VEENAL VIDEO CAMERA OPERATOR, BIBI L V68.1 ISSUE OF REPEAT PRESCRIPTIONS 01/22/2011 VEENAL VIDEO CAMERA OPERATOR, BIBI L V69.2 High-risk Sexual Behavior 01/22/2011 NICHOLSON DO, EROS K 300.00 ANXIETY UNSPEC 01/22/2011 NICHOLSON DO, EROS K 789.01 Abdominal Pain Right Upper Quadrant 01/22/2011 NICHOLSON DO, EROS K V01.9 Contact With Or Exposure To Unspecified Communicable Disease 01/22/2011 NICHOLSON DO, EROS K V68.1 ISSUE OF REPEAT PRESCRIPTIONS 01/22/2011 NICHOLSON DO, EROS K V69.2 High-risk Sexual Behavior 01/22/2011 NICHOLSON DO, EROS K 300.00 ANXIETY UNSPEC 01/22/2011 NICHOLSON DO, EROS K 789.01 Abdominal Pain Right Upper Quadrant 01/22/2011 NICHOLSON DO, EROS K V01.9 Contact With Or Exposure To Unspecified Communicable Disease 01/22/2011 NICHOLSON DO, EROS K V68.1 ISSUE OF REPEAT PRESCRIPTIONS 01/22/2011 NICHOLSON DO, REOS K V69.2 High-risk Sexual Behavior 01/22/2011 VEENAL VIDEO CAMERA OPERATORJEWEL HoA L 300.00 ANXIETY UNSPEC 01/22/2011 VEENAL VIDEO CAMERA OPERATORJEWEL HoA L 789.01 Abdominal Pain Right Upper Quadrant 01/22/2011 VEENAL VIDEO CAMERA OPERATORJEWELA L V01.9 Contact With Or Exposure To Unspecified Communicable Disease 01/22/2011 JOSE VIDEO CAMERA OPERATORMILLICENT HoNYA L V68.1 ISSUE OF REPEAT PRESCRIPTIONS 01/22/2011 MILLICENT GARCIA APRNNYA L V69.2 High-risk Sexual Behavior 01/22/2011 MILLICENT GARCIA APRNNYA L 300.00 ANXIETY UNSPEC 01/22/2011 JEWEL GARCIA APRNA L 789.01 Abdominal Pain Right Upper Quadrant 01/22/2011 JEWEL GARCIA APRNA L V01.9 Contact With Or Exposure To Unspecified Communicable Disease 01/22/2011 JEWEL GARCIA APRNA L V68.1 ISSUE OF REPEAT PRESCRIPTIONS 01/22/2011 JEWEL GARCIA APRNA L V69.2 High-risk Sexual Behavior 01/22/2011 CAROLE DOE APRN 300.00 ANXIETY UNSPEC 01/22/2011 CAROLE DOE APRN 789.01 Abdominal Pain Right Upper Quadrant 01/22/2011 CAROLE DOE APRN V01.9 Contact With Or Exposure To Unspecified Communicable Disease 01/22/2011 CAROLE DOE APRN J V68.1 ISSUE OF REPEAT PRESCRIPTIONS 01/22/2011 PRATIBHA DOE APRNA Beatriz V69.2 High-risk Sexual Behavior 01/22/2011 ZACH DE LEON PHD 300.00 ANXIETY UNSPEC 01/22/2011 ZACH DE LEON PHD 789.01 Abdominal Pain Right Upper Quadrant 01/22/2011 ZACH DE LEON PHD V01.9 Contact With Or Exposure To Unspecified Communicable Disease 01/22/2011 ZACH DE LEON PHD V68.1 ISSUE OF REPEAT PRESCRIPTIONS 01/22/2011 MOISES FLORES, ZACH Robin V69.2 High-risk Sexual Behavior 02/18/2011 SOPHIA [place] ANDREI VANESSA 296.32 MO DEPRESSIVE RECURRENT MODERATE 02/18/2011 296.32 MO DEPRESSIVE RECURRENT MODERATE 02/18/2011 296.32 MO DEPRESSIVE RECURRENT MODERATE 02/18/2011 296.32 MO DEPRESSIVE RECURRENT MODERATE 02/18/2011 296.32 MO DEPRESSIVE RECURRENT MODERATE 02/18/2011 296.32 MO DEPRESSIVE RECURRENT MODERATE 02/18/2011 296.32 MO DEPRESSIVE RECURRENT MODERATE 02/18/2011 SOPHIA [place] ANDREI VANESSA 296.32 MO DEPRESSIVE RECURRENT MODERATE 02/18/2011 S[place]IA [place] ANDREI RASHEEDA 296.32 MO DEPRESSIVE RECURRENT MODERATE 02/18/2011 NICHOLSON DO, EROS K 296.32 MO DEPRESSIVE RECURRENT MODERATE 02/18/2011 NICHOLSON DO, EROS K 296.32 MO DEPRESSIVE RECURRENT MODERATE 02/18/2011 LATRICIA HURTADO MD 296.32 MO DEPRESSIVE RECURRENT MODERATE 02/18/2011 MADL DONALDO, BIBI L 296.32 MO DEPRESSIVE RECURRENT MODERATE 02/18/2011 NICHOLSON DO, EROS K 296.32 MO DEPRESSIVE RECURRENT MODERATE 02/18/2011 NICHOLSON DO, EROS K 296.32 MO DEPRESSIVE RECURRENT MODERATE 02/18/2011 MADL VIDEO CAMERA OPERATOR, BIBI L 296.32 MO DEPRESSIVE RECURRENT MODERATE 02/18/2011 MADL VIDEO CAMERA OPERATOR, BIBI L 296.32 MO DEPRESSIVE RECURRENT MODERATE 02/18/2011 CAROLE DOE APRN 296.32 MO DEPRESSIVE RECURRENT MODERATE 02/18/2011 MOISES FLORES, ZACH Robin 296.32 MO DEPRESSIVE RECURRENT MODERATE 03/19/2011 SOPHAI [place] ANDREI RASHEEDA V58.69 Medication High Risk 03/19/2011 V58.69 Medication High Risk 03/19/2011 V58.69 Medication High Risk 03/19/2011 V58.69 Medication High Risk 03/19/2011 V58.69 Medication High Risk 03/19/2011 V58.69 Medication High Risk 03/19/2011 V58.69 Medication High Risk 03/19/2011 SOPHIA [place] ANDREI RASHEEDA V58.69 Medication High Risk 03/19/2011 SOPHIA [place] ANDREI RASHEEDA V58.69 Medication High Risk 03/19/2011 NICHOLSON DO, EROS K V58.69 Medication High Risk 03/19/2011 NICHOLSON DO, EROS K V58.69 Medication High Risk 03/19/2011 BRYANT ADAMS, LATRICIA V58.69 Medication High Risk 03/19/2011 MADL VIDEO CAMERA OPERATOR, BIBI L V58.69 Medication High Risk 03/19/2011 NICHOLSON DO, EROS K V58.69 Medication High Risk 03/19/2011 NICHOLSON DO, EROS K V58.69 Medication High Risk 03/19/2011 MADL VIDEO CAMERA OPERATOR, BIBI L V58.69 Medication High Risk 03/19/2011 MADL VIDEO CAMERA OPERATOR, BIBI L V58.69 Medication High Risk 03/19/2011 CAROLE DOE APRN V58.69 Medication High Risk 03/19/2011 MOISES PHD, ZACH Robin V58.69 Medication High Risk 03/26/2011 SOPHIA [place] ANDREI VANESSA 724.2 BACK PAIN, LOWER 03/26/2011 CORTES DONALDO ANDREI VANESSA 786.07 Wheezing 03/26/2011 724.2 BACK PAIN, LOWER 03/26/2011 786.07 Wheezing 03/26/2011 724.2 BACK PAIN, LOWER 03/26/2011 786.07 Wheezing 03/26/2011 724.2 BACK PAIN, LOWER 03/26/2011 786.07 Wheezing 03/26/2011 724.2 BACK PAIN, LOWER 03/26/2011 786.07 Wheezing 03/26/2011 724.2 BACK PAIN, LOWER 03/26/2011 786.07 Wheezing 03/26/2011 724.2 BACK PAIN, LOWER 03/26/2011 786.07 Wheezing 03/26/2011 [place] VANESSA 724.2 BACK PAIN, LOWER 03/26/2011 [place] AND[place]I VANESSA 786.07 Wheezing 03/26/2011 [place] ANDREI VANESSA 724.2 BACK PAIN, LOWER 03/26/2011 [place] ANDREI VANESSA 786.07 Wheezing 03/26/2011 NICHOLSON DO, EROS K 724.2 BACK PAIN, LOWER 03/26/2011 NICHOLSON DO, EROS K 786.07 Wheezing 03/26/2011 NICHOLSON DO, EROS K 724.2 BACK PAIN, LOWER 03/26/2011 NICHOLSON DO, EROS K 786.07 Wheezing 03/26/2011 BRYANT ADAMS, LATRICIA 724.2 BACK PAIN, LOWER 03/26/2011 LATRICIA HURTADO MD 786.07 Wheezing 03/26/2011 MADL VIDEO CAMERA OPERATOR, BIBI L 724.2 BACK PAIN, LOWER 03/26/2011 MADL VIDEO CAMERA OPERATOR, BIBI L 786.07 Wheezing 03/26/2011 NICHOLSON DO, EROS K 724.2 BACK PAIN, LOWER 03/26/2011 NICHOLSON DO, EROS K 786.07 Wheezing 03/26/2011 NICHOLSON DO, EROS K 724.2 BACK PAIN, LOWER 03/26/2011 NICHOLSON DO, EROS K 786.07 Wheezing 03/26/2011 MADL VIDEO CAMERA OPERATOR, BIBI L 724.2 BACK PAIN, LOWER 03/26/2011 MADL VIDEO CAMERA OPERATOR, BIBI L 786.07 Wheezing 03/26/2011 MADL VIDEO CAMERA OPERATOR, BIBI L 724.2 BACK PAIN, LOWER 03/26/2011 MADL VIDEO CAMERA OPERATOR, BIBI L 786.07 Wheezing 03/26/2011 BROOK DONALDO, CAROLE J 724.2 BACK PAIN, LOWER 03/26/2011 BROOK VIDEO CAMERA OPERATOR, CAROLE J 786.07 Wheezing 03/26/2011 MOISES PHD, ZACH Robin 724.2 BACK PAIN, LOWER 03/26/2011 OMISES PHD, ZACH Robin 786.07 Wheezing 05/21/2011 ANDREI CORTES APRN 465.9 Upper Respiratory Infection 05/21/2011 465.9 Upper Respiratory Infection 05/21/2011 465.9 Upper Respiratory Infection 05/21/2011 465.9 Upper Respiratory Infection 05/21/2011 465.9 Upper Respiratory Infection 05/21/2011 465.9 Upper Respiratory Infection 05/21/2011 465.9 Upper Respiratory Infection 05/21/2011 ANDREI CORTES APRN 465.9 Upper Respiratory Infection 05/21/2011 ANDREI CORTES APRN 465.9 Upper Respiratory Infection 05/21/2011 NICHOLSON DO, EROS K 465.9 Upper Respiratory Infection 05/21/2011 NICHOLSON DO, EROS K 465.9 Upper Respiratory Infection 05/21/2011 LATRICIA HURTADO MD 465.9 Upper Respiratory Infection 05/21/2011 VEENAL VIDEO CAMERA OPERATOR, BIBI L 465.9 Upper Respiratory Infection 05/21/2011 NICHOLSON DO, EROS K 465.9 Upper Respiratory Infection 05/21/2011 NICHOLSON DO, EROS K 465.9 Upper Respiratory Infection 05/21/2011 JOSE VIDEO CAMERA OPERATOR, BIBI L 465.9 Upper Respiratory Infection 05/21/2011 JOSE VIDEO CAMERA OPERATOR, BIBI L 465.9 Upper Respiratory Infection 05/21/2011 BROOK [place], CAROLE Henderson 465.9 Upper Respiratory Infection 05/21/2011 MOISES FLORES, ZACH Robin 465.9 Upper Respiratory Infection 08/13/2011 SOPHIA [place] ANDREI VANESSA 304.30 CANNABIS DEPENDENCE UNSPECIFIED USE 08/13/2011 SOPHIA [place] ANDREI VANESSA 528.9 MOUTH PAIN 08/13/2011 304.30 CANNABIS DEPENDENCE UNSPECIFIED USE 08/13/2011 528.9 MOUTH PAIN 08/13/2011 304.30 CANNABIS DEPENDENCE UNSPECIFIED USE 08/13/2011 528.9 MOUTH PAIN 08/13/2011 304.30 CANNABIS DEPENDENCE UNSPECIFIED USE 08/13/2011 528.9 MOUTH PAIN 08/13/2011 304.30 CANNABIS DEPENDENCE UNSPECIFIED USE 08/13/2011 528.9 MOUTH PAIN 08/13/2011 304.30 CANNABIS DEPENDENCE UNSPECIFIED USE 08/13/2011 528.9 MOUTH PAIN 08/13/2011 304.30 CANNABIS DEPENDENCE UNSPECIFIED USE 08/13/2011 528.9 MOUTH PAIN 08/13/2011 SOPHIA [place] ANDREI VANESSA 304.30 CANNABIS DEPENDENCE UNSPECIFIED USE 08/13/2011 SOPHIA [place] ANDREI KATZH 528.9 MOUTH PAIN 08/13/2011 S[place] ANDREI RASHEEDA 304.30 CANNABIS DEPENDENCE UNSPECIFIED USE 08/13/2011 S[place]IA [place] ANDREI KATZH 528.9 MOUTH PAIN 08/13/2011 NICHOLSON DO, EROS K 304.30 CANNABIS DEPENDENCE UNSPECIFIED USE 08/13/2011 NICHOLSON DO, EROS K 528.9 MOUTH PAIN 08/13/2011 NICHOLSON DO, EROS K 304.30 CANNABIS DEPENDENCE UNSPECIFIED USE 08/13/2011 NICHOLSON DO, EROS K 528.9 MOUTH PAIN 08/13/2011 LATRICIA HURTADO MD 304.30 CANNABIS DEPENDENCE UNSPECIFIED USE 08/13/2011 LATRICIA HURTADO MD 528.9 MOUTH PAIN 08/13/2011 MADL VIDEO CAMERA OPERATOR, BIBI L 304.30 CANNABIS DEPENDENCE UNSPECIFIED USE 08/13/2011 MADL VIDEO CAMERA OPERATOR, BIBI L 528.9 MOUTH PAIN 08/13/2011 NICHOLSON DO, EROS K 304.30 CANNABIS DEPENDENCE UNSPECIFIED USE 08/13/2011 NICHOLSON DO, EROS K 528.9 MOUTH PAIN 08/13/2011 NICHOLSON DO, EROS K 304.30 CANNABIS DEPENDENCE UNSPECIFIED USE 08/13/2011 NICHOLSON DO, EROS K 528.9 MOUTH PAIN 08/13/2011 MADL VIDEO CAMERA OPERATOR, BIBI L 304.30 CANNABIS DEPENDENCE UNSPECIFIED USE 08/13/2011 MADL VIDEO CAMERA OPERATOR BIBI L 528.9 MOUTH PAIN 08/13/2011 MADL VIDEO CAMERA OPERATOR, BIBI L 304.30 CANNABIS DEPENDENCE UNSPECIFIED USE 08/13/2011 MADL VIDEO CAMERA OPERATORMILLICENT HoNYA L 528.9 MOUTH PAIN 08/13/2011 PRATIBHA DOE APRNA J 304.30 CANNABIS DEPENDENCE UNSPECIFIED USE 08/13/2011 BR[place] CAROLE J 528.9 MOUTH PAIN 08/13/2011 MOISES PHD, ZACH A 304.30 CANNABIS DEPENDENCE UNSPECIFIED USE 08/13/2011 MOISES FLORES, ZACH A 528.9 MOUTH PAIN 08/21/2011 ANDREI CORTES APRN V58.69 MEDICATION HIGH RISK 08/21/2011 V58.69 MEDICATION HIGH RISK 08/21/2011 V58.69 MEDICATION HIGH RISK 08/21/2011 V58.69 MEDICATION HIGH RISK 08/21/2011 V58.69 MEDICATION HIGH RISK 08/21/2011 V58.69 MEDICATION HIGH RISK 08/21/2011 V58.69 MEDICATION HIGH RISK 08/21/2011 ANDREI CORTES APRN V58.69 MEDICATION HIGH RISK 08/21/2011 ANDREI CORTES APRN V58.69 MEDICATION HIGH RISK 08/21/2011 NICHOLSON DO, EROS K V58.69 MEDICATION HIGH RISK 08/21/2011 NICHOLSON DO, EROS K V58.69 MEDICATION HIGH RISK 08/21/2011 LATRICIA HURTADO MD V58.69 MEDICATION HIGH RISK 08/21/2011 BIBI GARCIA APRN L V58.69 MEDICATION HIGH RISK 08/21/2011 NICHOLSON DOISAA K V58.69 MEDICATION HIGH RISK 08/21/2011 NICHOLSON DO, EROS K V58.69 MEDICATION HIGH RISK 08/21/2011 MADL VIDEO CAMERA OPERATOR, BIBI L V58.69 MEDICATION HIGH RISK 08/21/2011 MADL VIDEO CAMERA OPERATOR, BIBI L V58.69 MEDICATION HIGH RISK 08/21/2011 BROOK VIDEO CAMERA OPERATOR, CAROLE Beatriz V58.69 MEDICATION HIGH RISK 08/21/2011 MOISES FLORES, ZACH Robin V58.69 MEDICATION HIGH RISK 10/07/2011 ANDREI CORTES APRN 296.80 MO BIPOLAR NOS 10/07/2011 ANDREI CORTES APRN 309.0 ADJUSTMENT DISORDER WITH DEPRESSED MOOD 10/07/2011 ANDREI CORTES APRN 314.01 ADHD COMBINED 10/07/2011 296.80 MO BIPOLAR NOS 10/07/2011 309.0 ADJUSTMENT DISORDER WITH DEPRESSED MOOD 10/07/2011 314.01 ADHD COMBINED 10/07/2011 296.80 MO BIPOLAR NOS 10/07/2011 309.0 ADJUSTMENT DISORDER WITH DEPRESSED MOOD 10/07/2011 314.01 ADHD COMBINED 10/07/2011 296.80 MO BIPOLAR NOS 10/07/2011 309.0 ADJUSTMENT DISORDER WITH DEPRESSED MOOD 10/07/2011 314.01 ADHD COMBINED 10/07/2011 296.80 MO BIPOLAR NOS 10/07/2011 309.0 ADJUSTMENT DISORDER WITH DEPRESSED MOOD 10/07/2011 314.01 ADHD COMBINED 10/07/2011 296.80 MO BIPOLAR NOS 10/07/2011 309.0 ADJUSTMENT DISORDER WITH DEPRESSED MOOD 10/07/2011 314.01 ADHD COMBINED 10/07/2011 296.80 MO BIPOLAR NOS 10/07/2011 309.0 ADJUSTMENT DISORDER WITH DEPRESSED MOOD 10/07/2011 314.01 ADHD COMBINED 10/07/2011 ANDREI CORTES APRN 296.80 MO BIPOLAR NOS 10/07/2011 ANDREI CORTES APRN 309.0 ADJUSTMENT DISORDER WITH DEPRESSED MOOD 10/07/2011 ANDREI CORTES APRN 314.01 ADHD COMBINED 10/07/2011 ANDREI CORTES APRN 296.80 MO BIPOLAR NOS 10/07/2011 ANDREI CORTES APRN 309.0 ADJUSTMENT DISORDER WITH DEPRESSED MOOD 10/07/2011 ANDREI CORTES APRN 314.01 ADHD COMBINED 10/07/2011 NICHOLSON DO, EROS K 296.80 MO BIPOLAR NOS 10/07/2011 NICHOLSON DO, EROS K 309.0 ADJUSTMENT DISORDER WITH DEPRESSED MOOD 10/07/2011 NICHOLSON DO, EROS K 314.01 ADHD COMBINED 10/07/2011 NICHOLSON DO, EROS K 296.80 MO BIPOLAR NOS 10/07/2011 NICHOLSON DO, EROS K 309.0 ADJUSTMENT DISORDER WITH DEPRESSED MOOD 10/07/2011 NICHOLSON DO, EROS K 314.01 ADHD COMBINED 10/07/2011 LATRICIA HURTADO MD 296.80 MO BIPOLAR NOS 10/07/2011 LATRICIA HURTADO MD 309.0 ADJUSTMENT DISORDER WITH DEPRESSED MOOD 10/07/2011 LATRICIA HURTADO MD 314.01 ADHD COMBINED 10/07/2011 MADL VIDEO CAMERA OPERATOR, IBBI L 296.80 MO BIPOLAR NOS 10/07/2011 MADL VIDEO CAMERA OPERATOR, BIBI L 309.0 ADJUSTMENT DISORDER WITH DEPRESSED MOOD 10/07/2011 MADL VIDEO CAMERA OPERATOR, BIBI L 314.01 ADHD COMBINED 10/07/2011 NICHOLSON DO, EROS K 296.80 MO BIPOLAR NOS 10/07/2011 NICHOLSON DO, EROS K 309.0 ADJUSTMENT DISORDER WITH DEPRESSED MOOD 10/07/2011 NICHOLSON DO, EROS K 314.01 ADHD COMBINED 10/07/2011 NICHOLSON DO, EROS K 296.80 MO BIPOLAR NOS 10/07/2011 NICHOLSON DO, EROS K 309.0 ADJUSTMENT DISORDER WITH DEPRESSED MOOD 10/07/2011 NICHOLSON DO, EROS K 314.01 ADHD COMBINED 10/07/2011 MADL VIDEO CAMERA OPERATOR, BIBI L 296.80 MO BIPOLAR NOS 10/07/2011 MADL VIDEO CAMERA OPERATOR, BIBI L 309.0 ADJUSTMENT DISORDER WITH DEPRESSED MOOD 10/07/2011 MADL VIDEO CAMERA OPERATOR, BIBI L 314.01 ADHD COMBINED 10/07/2011 MADL VIDEO CAMERA OPERATOR, BIBI L 296.80 MO BIPOLAR NOS 10/07/2011 MADL VIDEO CAMERA OPERATOR, BIBI L 309.0 ADJUSTMENT DISORDER WITH DEPRESSED MOOD 10/07/2011 MADL VIDEO CAMERA OPERATOR, BIBI L 314.01 ADHD COMBINED 10/07/2011 BROOK VIDEO CAMERA OPERATOR, CAROLE J 296.80 MO BIPOLAR NOS 10/07/2011 BROOK VIDEO CAMERA OPERATOR, CAROLE J 309.0 ADJUSTMENT DISORDER WITH DEPRESSED MOOD 10/07/2011 BROOK [place] CAROLE J 314.01 ADHD COMBINED 10/07/2011 MOISES FLORES, ZACH Robin 296.80 MO BIPOLAR NOS 10/07/2011 MOISES FLORES, ZACH Robin 309.0 ADJUSTMENT DISORDER WITH DEPRESSED MOOD 10/07/2011 MOISES LFORES, ZACH Robin 314.01 ADHD COMBINED 08/12/2012 278.00 OBESITY 08/12/2012 626.4 irregular length of menstrual periods 08/12/2012 726.10 TENDONITIS ROTATOR CUFF 08/12/2012 786.2 cough 08/12/2012 278.00 OBESITY 08/12/2012 626.4 irregular length of menstrual periods 08/12/2012 726.10 TENDONITIS ROTATOR CUFF 08/12/2012 786.2 cough 08/12/2012 278.00 OBESITY 08/12/2012 626.4 irregular length of menstrual periods 08/12/2012 726.10 TENDONITIS ROTATOR CUFF 08/12/2012 786.2 cough 08/12/2012 278.00 OBESITY 08/12/2012 626.4 irregular length of menstrual periods 08/12/2012 726.10 TENDONITIS ROTATOR CUFF 08/12/2012 786.2 cough 08/12/2012 278.00 OBESITY 08/12/2012 626.4 irregular length of menstrual periods 08/12/2012 726.10 TENDONITIS ROTATOR CUFF 08/12/2012 786.2 cough 08/12/2012 278.00 OBESITY 08/12/2012 626.4 irregular length of menstrual periods 08/12/2012 726.10 TENDONITIS ROTATOR CUFF 08/12/2012 786.2 cough 08/12/2012 ANDREI CORTES APRN 278.00 OBESITY 08/12/2012 ANDREI CORTES APRN 626.4 irregular length of menstrual periods 08/12/2012 ANDREI CORTES APRN 726.10 TENDONITIS ROTATOR CUFF 08/12/2012 ANDREI CORTES APRN 786.2 cough 08/12/2012 ANDREI CORTES APRN 278.00 OBESITY 08/12/2012 ANDREI CORTES APRN 626.4 irregular length of menstrual periods 08/12/2012 ANDREI CORTES APRN 726.10 TENDONITIS ROTATOR CUFF 08/12/2012 ANDREI CORTES APRN 786.2 cough 08/12/2012 NICHOLSON DO, EROS K 278.00 OBESITY 08/12/2012 NICHOLSON DO, EROS K 626.4 irregular length of menstrual periods 08/12/2012 NICHOLSON DO, EROS K 726.10 TENDONITIS ROTATOR CUFF 08/12/2012 NICHOLSON DO, EROS K 786.2 cough 08/12/2012 NICHOLSON DO, EROS K 278.00 OBESITY 08/12/2012 NICHOLSON DO, EROS K 626.4 irregular length of menstrual periods 08/12/2012 NICHOLSON DO, EROS K 726.10 TENDONITIS ROTATOR CUFF 08/12/2012 NICHOLSON DO, EROS K 786.2 cough 08/12/2012 LATRICIA HURTADO MD 278.00 OBESITY 08/12/2012 LATRICIA HURTADO MD 626.4 irregular length of menstrual periods 08/12/2012 LATRICIA HURTADO MD 726.10 TENDONITIS ROTATOR CUFF 08/12/2012 LATRICIA HURTADO MD 786.2 cough 08/12/2012 MADL VIDEO CAMERA OPERATOR, BIBI L 278.00 OBESITY 08/12/2012 MADL VIDEO CAMERA OPERATOR, BIBI L 626.4 irregular length of menstrual periods 08/12/2012 MADL VIDEO CAMERA OPERATOR, BIBI L 726.10 TENDONITIS ROTATOR CUFF 08/12/2012 MADL VIDEO CAMERA OPERATOR, BIBI L 786.2 cough 08/12/2012 NICHOLSON DO, EROS K 278.00 OBESITY 08/12/2012 NICHOLSON DO, EROS K 626.4 irregular length of menstrual periods 08/12/2012 NICHOLSON DO, EROS K 726.10 TENDONITIS ROTATOR CUFF 08/12/2012 NICHOLSON DO, EROS K 786.2 cough 08/12/2012 NICHOLSON DO, EROS K 278.00 OBESITY 08/12/2012 NICHOLSON DO, EROS K 626.4 irregular length of menstrual periods 08/12/2012 NICHOLSON DO, EROS K 726.10 TENDONITIS ROTATOR CUFF 08/12/2012 NICHOLSON DO, EROS K 786.2 cough 08/12/2012 MADL VIDEO CAMERA OPERATOR, BIBI L 278.00 OBESITY 08/12/2012 MADL VIDEO CAMERA OPERATOR, BIBI L 626.4 irregular length of menstrual periods 08/12/2012 MADL VIDEO CAMERA OPERATOR, BIBI L 726.10 TENDONITIS ROTATOR CUFF 08/12/2012 JEWEL GARCIA APRNA L 786.2 cough 08/12/2012 JEWEL GARCIA APRNA L 278.00 OBESITY 08/12/2012 VEENAL JEWEL FULTONA L 626.4 irregular length of menstrual periods 08/12/2012 JEWEL GARCIA APRNA L 726.10 TENDONITIS ROTATOR CUFF 08/12/2012 JEWEL GARCIA APRNA L 786.2 cough 08/12/2012 BROOK [place] CAROLE J 278.00 OBESITY 08/12/2012 BROOK VIDEO CAMERA OPERATOR, CAROLE J 626.4 irregular length of menstrual periods 08/12/2012 BROOK DONALDO, CAROLE J 726.10 TENDONITIS ROTATOR CUFF 08/12/2012 [place] CAROLE J 786.2 cough 08/12/2012 ZACH DE LEON PHD 278.00 OBESITY 08/12/2012 ZACH DE LEON PHD 626.4 irregular length of menstrual periods 08/12/2012 ZACH DE LEON PHD 726.10 TENDONITIS ROTATOR CUFF 08/12/2012 ZACH DE LEON PHD 786.2 cough 08/18/2012 593.9 RENAL INSUFFICIENCY 08/18/2012 593.9 RENAL INSUFFICIENCY 08/18/2012 593.9 RENAL INSUFFICIENCY 08/18/2012 593.9 RENAL INSUFFICIENCY 08/18/2012 593.9 RENAL INSUFFICIENCY 08/18/2012 593.9 RENAL INSUFFICIENCY 08/18/2012 ANDREI CORTES APRN 593.9 RENAL INSUFFICIENCY 08/18/2012 ANDREI CORTES APRN 593.9 RENAL INSUFFICIENCY 08/18/2012 EROS NICHOLSON DO K 593.9 RENAL INSUFFICIENCY 08/18/2012 EROS NICHOLSON DO K 593.9 RENAL INSUFFICIENCY 08/18/2012 BRYANT ADAMS, LATRICIA 593.9 RENAL INSUFFICIENCY 08/18/2012 BIBI GARCIA APRN 593.9 RENAL INSUFFICIENCY 08/18/2012 EROS NICHOLSON DO K 593.9 RENAL INSUFFICIENCY 08/18/2012 NICHOLSON ISA ANA K 593.9 RENAL INSUFFICIENCY 08/18/2012 BIBI GARCIA APRN L 593.9 RENAL INSUFFICIENCY 08/18/2012 BIBI GARCIA APRN 593.9 RENAL INSUFFICIENCY 08/18/2012 CAROLE DOE APRN 593.9 RENAL INSUFFICIENCY 08/18/2012 MOISES FLORES, ZACH Robin 593.9 RENAL INSUFFICIENCY 09/22/2012 789.04 ABDOMINAL PAIN LEFT LOWER QUADRANT 09/22/2012 789.04 ABDOMINAL PAIN LEFT LOWER QUADRANT 09/22/2012 789.04 abdominal pain in the left lower belly (LLQ) 09/22/2012 789.04 abdominal pain in the left lower belly (LLQ) 09/22/2012 S[place]HIA [place] ANDREI VANESSA 789.04 abdominal pain in the left lower belly (LLQ) 09/22/2012 [place] ANDREI KATZH 789.04 abdominal pain in the left lower belly (LLQ) 09/22/2012 EROS NICHOLSON DO 789.04 abdominal pain in the left lower belly (LLQ) 09/22/2012 EROS NICHOLSON DO 789.04 abdominal pain in the left lower belly (LLQ) 09/22/2012 LATRICIA HURTADO MD 789.04 abdominal pain in the left lower belly (LLQ ) 09/22/2012 BIBI GARCIA APRN 789.04 abdominal pain in the left lower belly ( LLQ) 09/22/2012 EROS NICHOLSON DO K 789.04 abdominal pain in the left lower belly (LLQ) 09/22/2012 NICHOLSON EROS AN K 789.04 abdominal pain in the left lower belly (LLQ) 09/22/2012 BIBI GARCIA APRN 789.04 abdominal pain in the left lower belly ( LLQ) 09/22/2012 BIBI GARCIA APRN 789.04 abdominal pain in the left lower belly ( LLQ) 09/22/2012 CAROLE DOE APRN 789.04 abdominal pain in the left lower belly (LLQ) 09/22/2012 ZACH DE LEON PHD 789.04 abdominal pain in the left lower belly ( LLQ) 12/30/2013 BIBI GARCIA APRN 314.00 ADHD INATTENTIVE 12/30/2013 MADL VIDEO CAMERA OPERATOR, BIBI L 787.1 HEARTBURN 12/30/2013 NICHOLSON DO, EROS K 314.00 ADHD INATTENTIVE 12/30/2013 NICHOLSON DO, EROS K 787.1 HEARTBURN 12/30/2013 NICHOLSON DO, EROS K 314.00 ADHD INATTENTIVE 12/30/2013 NICHOLSON DO, EROS K 787.1 HEARTBURN 12/30/2013 MADL VIDEO CAMERA OPERATOR, BIBI L 314.00 ADHD INATTENTIVE 12/30/2013 MADL VIDEO CAMERA OPERATOR, BIBI L 787.1 HEARTBURN 12/30/2013 MADL VIDEO CAMERA OPERATOR, BIBI L 314.00 ADHD INATTENTIVE 12/30/2013 MADL VIDEO CAMERA OPERATOR, BIBI L 787.1 HEARTBURN 12/30/2013 BROOK VIDEO CAMERA OPERATOR, CAROLE J 314.00 ADHD INATTENTIVE 12/30/2013 BROOK VIDEO CAMERA OPERATOR, CAROLE J 787.1 HEARTBURN 12/30/2013 ZACH DE LEON PHD 314.00 ADHD INATTENTIVE 12/30/2013 MOISES FLORES, ZACH Robin 787.1 HEARTBURN 02/15/2014 NICHOLSON DO, EROS K 381.01 ACUTE SEROUS OTITIS MEDIA 02/15/2014 NICHOLSON DO, EROS K 461.9 SINUSITIS ACUTE 02/15/2014 NICHOLSON DO, EROS K 381.01 ACUTE SEROUS OTITIS MEDIA 02/15/2014 NICHOLSON DO, EROS K 461.9 SINUSITIS ACUTE 02/15/2014 MADL VIDEO CAMERA OPERATOR, BIBI L 381.01 ACUTE SEROUS OTITIS MEDIA 02/15/2014 MADL VIDEO CAMERA OPERATOR, BIBI L 461.9 SINUSITIS ACUTE 02/15/2014 MADL VIDEO CAMERA OPERATOR, BIBI L 381.01 ACUTE SEROUS OTITIS MEDIA 02/15/2014 MADL VIDEO CAMERA OPERATOR, BIBI L 461.9 SINUSITIS ACUTE 02/15/2014 BROOK VIDEO CAMERA OPERATOR, CAROLE J 381.01 ACUTE SEROUS OTITIS MEDIA 02/15/2014 BROOK VIDEO CAMERA OPERATOR CAROLE J 461.9 SINUSITIS ACUTE 02/15/2014 ZACH DE LEON PHD 381.01 ACUTE SEROUS OTITIS MEDIA 02/15/2014 ZACH DE LEON PHD 461.9 SINUSITIS ACUTE 03/20/2014 NICHOLSON DO EROS K 311 MO DEPRESS NOS 03/20/2014 BIBI GARCIA APRN 311 MO DEPRESS NOS 03/20/2014 BIBI GARCIA APRN 311 MO DEPRESS NOS 03/20/2014 CAROLE DOE APRN 311 MO DEPRESS NOS 03/20/2014 MOISES FLORES, ZACH Robin 311 MO DEPRESS NOS 03/29/2014 PIOTR ADAMS, JÚNIOR Christensen Ot 626.2 03/29/2014 PIOTR ADAMS, JÚNIOR Christensen Ot 626.8 03/29/2014 PIOTR ADAMS, JÚNIOR Christensen Ot V72.84 04/04/2014 PIOTR ADAMS, JÚNIOR Christensen Ot 216.6 BENIGN DIMITRI SKIN ARM 04/04/2014 PIOTR ADAMS, JÚNIOR Christensen Ot 616.0 CERVICITIS 04/04/2014 PIOTR ADAMS, JÚNIOR Christensen Ot 617.2 TUBAL ENDOMETRIOSIS 04/04/2014 PIOTR ADAMS, JÚNIOR Christensen Ot 620.8 NONINFL DIS OVA/ADNX NEC 04/04/2014 PIOTR ADAMS, JÚNIOR Christensen Ot 706.2 SEBACEOUS CYST 05/03/2014 BIBI GARCIA APRN 346.90 MIGRAINE UNSPECIFIED WITHOUT MENTION OF INTRACTABLE MIGRAINE WITHOUT MENTION OF STATUS MIGRAINOSUS 05/03/2014 BIBI GARCIA APRN 780.52 INSOMNIA UNSPECIFIED 05/03/2014 BIBI GARCIA APRN 346.90 MIGRAINE UNSPECIFIED WITHOUT MENTION OF INTRACTABLE MIGRAINE WITHOUT MENTION OF STATUS MIGRAINOSUS 05/03/2014 BIBI GARCIA APRN 780.52 INSOMNIA UNSPECIFIED 05/03/2014 CAROLE DOE APRN 346.90 MIGRAINE UNSPECIFIED WITHOUT MENTION OF INTRACTABLE MIGRAINE WITHOUT MENTION OF STATUS MIGRAINOSUS 05/03/2014 CAROLE DOE APRN 780.52 INSOMNIA UNSPECIFIED 05/03/2014 ZACH DE LEON PHD 346.90 MIGRAINE UNSPECIFIED WITHOUT MENTION OF INTRACTABLE MIGRAINE WITHOUT MENTION OF STATUS MIGRAINOSUS 05/03/2014 ZACH DE LEON PHD 780.52 INSOMNIA UNSPECIFIED 06/02/2014 BIBI GARCIA APRN V15.81 PERSONAL HISTORY OF NONCOMPLIANCE WITH MEDICAL TREATMENT PRESENTING HAZARDS TO HEALTH 06/02/2014 CAROLE DOE APRN V15.81 PERSONAL HISTORY OF NONCOMPLIANCE WITH MEDICAL TREATMENT PRESENTING HAZARDS TO HEALTH 06/02/2014 MOISES PHD, ZACH Robin V15.81 PERSONAL HISTORY OF NONCOMPLIANCE WITH MEDICAL TREATMENT PRESENTING HAZARDS TO HEALTH 07/25/2014 CAROLE DOE APRN 309.81 AN PTSD 07/25/2014 MOISES PHD, ZACH Robin 309.81 AN PTSD 08/08/2015 PAULA ADAMS, CHONG Chery Ot V72.84 08/08/2015 PIOTR ADAMS, JÚNIOR Christensen Ot 626.8 08/08/2015 PIOTR ADAMS, JÚNIOR Christensen Ot V72.63 08/08/2015 PIOTR ADAMS, JÚNIOR Christensen Ot V72.84 08/08/2015 PIOTR ADAMS, JÚNIOR Christensen Ot V74.8 08/08/2015 PIOTR ADAMS, JÚNIOR Christensen Ot 285.9 08/08/2015 PIOTR ADAMS, JÚNIOR Christensen Ot 626.2 08/08/2015 PIOTR ADAMS, JÚNIOR Christensen Ot 626.8 08/08/2015 PIOTR ADAMS, JÚNIOR Christensen Ot V72.63 08/08/2015 PIOTR ADAMS, JÚNIOR Christensen Ot V74.8 08/08/2015 PIOTR ADAMS, JÚNIOR Christensen Ot 626.2 08/08/2015 PIOTR ADAMS, JÚNIOR Fermin Ot 626.8 08/08/2015 PIOTR ADAMS, JÚNIOR Christensen Ot V72.84 09/20/2015 MESSI CALLAHAN DO Ot E66.01 MORBID (SEVERE) OBESITY DUE TO EXCESS CA 09/20/2015 MESSI CALLAHAN DO Ot R06.00 DYSPNEA, UNSPECIFIED 09/20/2015 MESSI CALLAHAN DO Ot Z72.0 TOBACCO USE 10/09/2015 MESSI CALLAHAN DO Ot E66.01 MORBID (SEVERE) OBESITY DUE TO EXCESS CA 10/09/2015 MESSI CALLAHAN DO Ot R06.00 DYSPNEA, UNSPECIFIED 10/09/2015 MESSI CALLAHAN DO Ot Z72.0 TOBACCO USE 11/06/2015 MESSI CALLAHAN DO Ot E66.01 MORBID (SEVERE) OBESITY DUE TO EXCESS CA 11/06/2015 MESSI CALLAHAN DO Ot R06.00 DYSPNEA, UNSPECIFIED 11/06/2015 MESSI CALLAHAN DO Ot Z72.0 TOBACCO USE 11/19/2015 MESSI CALLAHAN DO Ot E66.01 MORBID (SEVERE) OBESITY DUE TO EXCESS CA 11/19/2015 MESSI CALLAHAN DO Ot R06.00 DYSPNEA, UNSPECIFIED 11/19/2015 MESSI CALLAHAN DO Ot Z72.0 TOBACCO USE 01/06/2016 MESSI CALLAHAN DO Ot E66.01 MORBID (SEVERE) OBESITY DUE TO EXCESS CA 01/06/2016 MESSI CALLAHAN DO Ot R06.00 DYSPNEA, UNSPECIFIED 01/06/2016 MESSI CALLAHAN DO Ot Z72.0 TOBACCO USE 02/05/2016 PAULA ADAMS, CHONG Chery Ot V72.84 EXAM PRE-OPERATIVE NOS 02/05/2016 JÚNIOR ROBERTSON MD Ot 626.8 MENSTRUAL DISORDER NEC 02/05/2016 JÚNIOR ROBERTSON MD Ot V72.63 PRE-PROCEDURAL LABORATORY EXAMINATION 02/05/2016 JÚNIOR ROBERTSON MD, Ot V72.84 EXAM PRE-OPERATIVE NOS 02/05/2016 JÚNIOR ROBERTSON MD Ot V74.8 SCREEN-BACTERIAL DIS NEC 02/05/2016 JÚNIOR ROBERTSON MD Ot 285.9 ANEMIA NOS 02/05/2016 JÚNIOR ROBERTSON MD Ot 626.2 EXCESSIVE MENSTRUATION 02/05/2016 JÚNIOR ROBERTSON MD Ot 626.8 MENSTRUAL DISORDER NEC 02/05/2016 JÚNIOR ROBERTSON MD, Ot V72.63 PRE-PROCEDURAL LABORATORY EXAMINATION 02/05/2016 JÚNIOR ROBERTSON MD, Ot V74.8 SCREEN-BACTERIAL DIS NEC 02/05/2016 JÚNIOR ROBERTSON MD, Ot 626.2 EXCESSIVE MENSTRUATION 02/05/2016 JÚNIOR ROBERTSON MD, Ot 626.8 MENSTRUAL DISORDER NEC 02/05/2016 JÚNIOR ROBERTSON MD Ot V72.84 EXAM PRE-OPERATIVE NOS 02/05/2016 L[place]ON ANMESSI Ot E66.01 MORBID (SEVERE) OBESITY DUE TO EXCESS CA 02/05/2016 LONDONMESSI FATIMA DO Ot R06.00 DYSPNEA, UNSPECIFIED 02/05/2016 MESSI CALLAHAN DO Ot Z72.0 TOBACCO USE 02/05/2016 [place] MESSI AN Ot E66.01 MORBID (SEVERE) OBESITY DUE TO EXCESS CA 02/05/2016 [place] MESSI AN Ot R06.00 DYSPNEA, UNSPECIFIED 02/05/2016 MESSI CALLAHAN DO Ot Z72.0 TOBACCO USE 02/06/2016 KEENA ROBERTS APRN Ot R06.00 DYSPNEA, UNSPECIFIED 02/20/2016 KEENA ROBERTS APRN Ot R06.00 DYSPNEA, UNSPECIFIED 04/11/2016 PAULA ADAMS, CHONG Chery Ot V72.84 EXAM PRE-OPERATIVE NOS 04/11/2016 JÚNIOR ROBERTSON MD Ot 626.8 MENSTRUAL DISORDER NEC 04/11/2016 JÚNIOR ROBERTSON MD, Ot V72.63 PRE-PROCEDURAL LABORATORY EXAMINATION 04/11/2016 JÚNIOR ROBERTSON MD Ot V72.84 EXAM PRE-OPERATIVE NOS 04/11/2016 JÚNIOR ROBERTSON MD Ot V74.8 SCREEN-BACTERIAL DIS NEC 04/11/2016 JÚNIOR ROBERTSON MD Ot 285.9 ANEMIA NOS 04/11/2016 JÚNIOR ROBERTSON MD Ot 626.2 EXCESSIVE MENSTRUATION 04/11/2016 JÚNIOR ROBERTSON MD Ot 626.8 MENSTRUAL DISORDER NEC 04/11/2016 JÚNIOR ROBERTSON MD Ot V72.63 PRE-PROCEDURAL LABORATORY EXAMINATION 04/11/2016 JÚNIOR ROBERTSON MD Ot V74.8 SCREEN-BACTERIAL DIS NEC 04/11/2016 JÚNIOR ROBERTSON MD Ot 626.2 EXCESSIVE MENSTRUATION 04/11/2016 JÚNIOR ROBERTSON MD Ot 626.8 MENSTRUAL DISORDER NEC 04/11/2016 JÚNIOR ROBERTSON MD Ot V72.84 EXAM PRE-OPERATIVE NOS 04/11/2016 MESSI CALLAHAN DO Ot E66.01 MORBID (SEVERE) OBESITY DUE TO EXCESS CA 04/11/2016 MESSI CALLAHAN DO Ot R06.00 DYSPNEA, UNSPECIFIED 04/11/2016 MESSI CALLAHAN DO Ot Z72.0 TOBACCO USE 04/11/2016 MESSI CALLAHAN DO Ot E66.01 MORBID (SEVERE) OBESITY DUE TO EXCESS CA 04/11/2016 [place] DOMESSI Ot R06.00 DYSPNEA, UNSPECIFIED 04/11/2016 [place] DOMESSI Ot Z72.0 TOBACCO USE 04/11/2016 ALEJANDRAKEENA NUNEZ VIDEO CAMERA OPERATOR Ot R06.00 DYSPNEA, UNSPECIFIED 04/16/2016 ALEJANDRA, KEENA E VIDEO CAMERA OPERATOR Ot R06.00 DYSPNEA, UNSPECIFIED 04/16/2016 ALEJANDRA, KEENA E VIDEO CAMERA OPERATOR Ot R93.8 ABNORMAL FINDINGS ON DIAGNOSTIC IMAGING 05/01/2016 ALEJANDRA, KEENA Vasquez VIDEO CAMERA OPERATOR Ot R06.00 DYSPNEA, UNSPECIFIED 05/01/2016 ALEJANDRA, KEENA E VIDEO CAMERA OPERATOR Ot R93.8 ABNORMAL FINDINGS ON DIAGNOSTIC IMAGING 08/09/2016 MESSI CALLAHAN DO Ot E66.01 MORBID (SEVERE) OBESITY DUE TO EXCESS CA 08/09/2016 MESSI CALLAHAN DO Ot R06.00 DYSPNEA, UNSPECIFIED 08/09/2016 [place] AN MESSI M Ot Z72.0 TOBACCO USE 08/09/2016 MESSI CALLAHAN DO Ot E66.01 MORBID (SEVERE) OBESITY DUE TO EXCESS CA 08/09/2016 MESSI CALLAHAN DO Ot R06.00 DYSPNEA, UNSPECIFIED 08/09/2016 MESSI CALLAHAN DO Ot Z72.0 TOBACCO USE 08/09/2016 MATY RADFORD DO Ot E66.01 MORBID (SEVERE) OBESITY DUE TO EXCESS CA 08/09/2016 MATY RADFORD DO Ot F17.210 NICOTINE DEPENDENCE, CIGARETTES, UNCOMPL 08/09/2016 MATY RADFORD DO Ot J44.9 CHRONIC OBSTRUCTIVE PULMONARY DISEASE, U 08/09/2016 MATY RADFORD DO Ot J45.909 UNSPECIFIED ASTHMA, UNCOMPLICATED 08/09/2016 MATY RADFORD DO Ot K43.9 VENTRAL HERNIA WITHOUT OBSTRUCTION OR GA 08/09/2016 MATY RADFORD DO Ot R10.12 LEFT UPPER QUADRANT PAIN 08/09/2016 MATY RADFORD DO Ot S39.011A STRAIN OF MUSCLE, FASCIA AND TENDON OF A 08/09/2016 MATY RADFORD DO Ot X58.XXXA EXPOSURE TO OTHER SPECIFIED FACTORS, INI 08/09/2016 MATY RADFORD DO Ot Y99.8 OTHER EXTERNAL CAUSE STATUS 08/09/2016 MATY RADFORD DO Ot Z79.899 OTHER SHELTER (CURRENT) DRUG THERAPY Procedures Code Description [place] [address] ROUTINE VENIPUNCTURE 08/12/2012 34044 A1C (IN-HOUSE) 31412 URINE DRUG SCREEN (IN-HOUSE) 08/12/2012 70634 CBC 08/12/2012 22013 CMP 08/12/2012 5765289 GFR CALC (RESULT ONLY) 08/12/2012 55082 TESTOSTERONE[facility]ILDREN 08/16/2012 03783 FSH 08/16/2012 43724 LH 08/16/2012 96346 TSH 08/17/2012 17707 ESTROGEN 2012 PRO/CRE URINE PROTEIN TO CREATNINE RATIO 08/19/2012 80855 UA W/MICROSCOPY 08/20/2012 Obstetric Kaylee Valderrama 08/21/2012 59459 US PELVIC COMPL (REFLEX CPT- 74719) 08/23/2012 General S Chong Guillory 08/31/2012 Obstetric Júnior Robertson 12/10/2012 55556 PSYCH DIAGNOSTIC EVALUATION 08/30/2014 Results Encounters ACCT No. Visit Date/Time Discharge Status Pt. Type Provider Facility Loc./Unit Complaint [id number] 08/30/2014 10:40:00 08/30/2014 23: 59:59 CLS Outpatient MOISES FLORES, ZACH Robin [id number] 07/25/2014 11:57:00 07/25/2014 23: 59:59 CLS Outpatient CAROLE DOE APRN [id number] 06/02/2014 10:51:00 06/02/2014 23: 59:59 CLS Outpatient BIBI GARCIA APRN [id number] 05/03/2014 09:56:00 05/03/2014 23: 59:59 CLS Outpatient BIBI GARCIA APRN [id number] 03/20/2014 10:13:00 03/20/2014 23: 59:59 CLS Outpatient EROS NICHOLSON DO [id number] 02/15/2014 11:18:00 02/15/2014 23: 59:59 CLS Outpatient EROS NICHOLSON DO Bert [id number] 12/30/2013 10:26:00 12/30/2013 23: 59:59 CLS Outpatient BIBI GARCIA APRN [id number] 12/02/2013 11:37:00 12/02/2013 23: 59:59 CLS Outpatient LATRICIA HURTADO MD [id number] 11/01/2013 13:21:00 11/01/2013 23: 59:59 CLS Outpatient EROS NICHOLSON DO Bert [id number] 10/05/2013 09:01:00 10/05/2013 23: 59:59 CLS Outpatient EROS NICHOLSON DO Bert [id number] 04/14/2013 10:52:00 04/14/2013 23: 59:59 CLS Outpatient ANDREI CORTES APRN [id number] 01/13/2013 11:59:00 01/13/2013 23: 59:59 CLS Outpatient ANDREI CORTES APRN [id number] 12/16/2011 11:54:00 12/16/2011 23: 59:59 CLS Outpatient ANDREI CORTES APRN [id number] 11/23/2012 11:38:00 Document Registration [id number] 11/19/2012 14:52:00 Document Registration [id number] 10/26/2012 15:53:00 Document Registration [id number] 08/21/2012 08:46:00 Document Registration [id number] 08/19/2012 11:21:00 Document Registration [id number] 08/12/2012 10:53:00 Document Registration
--- OUTSIDE RECORDS SUMMARY | 2016-09-14 05:29 | XMS REPORT ---
Author Author CAROLE DOE [employer] Address Unknown Phone Unavailable Care Team Providers Care Solution Professional Name Role Phone CAROLE DOE CP Unavailable Allergies No Known Allergies Problems Problem Type Condition Code Onset Dates Condition Status Problem Acute sinusitis, unspecified 461.9 Active Problem Obesity, unspecified 278.00 Active Problem Irregular menstrual cycle 626.4 Active Problem Bipolar disorder, unspecified 296.80 Active Problem Migraine, unspecified without mention of intractable migraine without mention of status migrainosus 346.90 Active Problem Attention deficit disorder of childhood with hyperactivity 314.01 Active Problem Insomnia, unspecified 780.52 Active Problem Adjustment disorder with depressed mood 309.0 Active Problem Cough 786.2 Active Problem Unspecified disorders of bursae and tendons in shoulder region 726.10 Active Problem Other and unspecified diseases of the oral soft tissues 528.9 Active Problem Cannabis dependence, unspecified abuse 304.30 Active Problem Attention deficit disorder of childhood without mention of hyperactivity 314.00 Active Problem Posttraumatic stress disorder 309.81 Active Problem Personal history of noncompliance with medical treatment, presenting hazards to health V15.81 Active Problem Heartburn 787.1 Active Problem Acute upper respiratory infections of unspecified site 465.9 Active Problem Depressive disorder, not elsewhere classified 311 Active Problem Abdominal pain, left lower quadrant 789.04 Active Problem Unspecified disorder of kidney and ureter 593.9 Active Problem Encounter for long-term (current) use of other medications V58.69 Active Problem Acute serous otitis media 381.01 Active Medications No Known Medications Results No Known Results Summary Purpose eClinicalWorks Submission
--- OUTSIDE RECORDS SUMMARY | 2016-09-14 05:29 | XMS REPORT ---
Author Author CAROLE DOE [employer] Address Unknown Phone Unavailable Care Team Providers Care Manager Gaming Name Role Phone CAROLE DOE CP Unavailable [...]
--- OUTSIDE RECORDS SUMMARY | 2016-09-14 05:29 | XMS REPORT ---
Author CAROLE Casillas [employer] Address Unknown Phone Unavailable Care Team Providers Care [employer] Reading Teacher Name Role Phone CAROLE DOE CP Unavailable Allergies, Adverse Reactions, Alerts Substance Reaction Event Type Strattera 10 Mg Capsule Info Not Available Non Drug Allergy Problems Problem Type Condition Code Onset Dates Condition Status Problem Acute sinusitis, unspecified 461.9 Active Problem Obesity, unspecified 278.00 Active Problem Irregular menstrual cycle 626.4 Active Problem Bipolar disorder, unspecified 296.80 Active Problem Migraine, unspecified without mention of intractable migraine without mention of status migrainosus 346.90 Active Problem Attention deficit disorder of childhood with hyperactivity 314.01 Active Problem Insomnia, unspecified 780.52 Active Assessment MARKOS (generalized anxiety disorder) F41.1 Active Problem Adjustment disorder with depressed mood [...] disorder of kidney and ureter 593.9 Active Assessment Major depressive disorder, recurrent episode, moderate F33.1 Active Problem Encounter for long-term (current) use of other medications V58.69 Active Problem Acute serous otitis media 381.01 Active Medications Medication Code System Code Instructions Start Date End Date Status Dosage Nexium [facility] [address]-39 20 MG Orally Once a day 1 capsule ProAir HFA [facility] [address]-66 90 mcg/actuation July 25, 2014 inhale 1-2 puffs by Inhalation route every 6 hours as needed PRN shortness of breath/cough Neurontin [facility] [address]-33 100 MG Orally 2 times a day Feb 08, 2015 as directed Albuterol-Ipratropium [facility] [address]-43 2.5-0.5 MG/3ML Inhalation Four times a day 3 ml Singulair [facility] [address]-70 5 MG Orally Once a day 2 tablets in the evening Ambien [facility] [address]-99 5 MG Orally at bedtime for sleep 1 tablet Flovent Diskus [facility] [address]-96 50 MCG/BLIST Inhalation Twice a day 1 puff HydrOXYzine HCl [facility] [address]-70 50 MG Orally 3 times per day for anxiety July 25, 2014 1 Tablet ZyrTEC [facility] 0 10 mg Quantity Amount, Route, and Frequency Jun 28, 2014 1 tablet by Oral route 1 time per day Procedures Procedure Coding System Code Date Office Visit, Est Pt., Level 4 CPT-4 69767 Feb 08, 2015 Vital Signs Date/Time: Feb 08, 2015 Cardiac Monitoring Heart Rate 112 bpm Weight 264.5 lbs Height 64 in BMI 45.40 Index Blood Pressure Diastolic 88 mmHg Blood Pressure Systolic 146 mmHg Results No Known Results Summary Purpose eClinicalWorks Submission
== END 2016-08-09 22:14 | disposition home or self-care (01) ==
LOC: EDUNIT# 19:32 → ER 19:35
DX: S39.011A Strain of muscle, fascia and tendon of abdomen, initial encounter (principal); K43.9 Ventral hernia without obstruction or gangrene; J44.9 Chronic obstructive pulmonary disease, unspecified; J45.909 Unspecified asthma, uncomplicated; E66.01 Morbid (severe) obesity due to excess calories; F17.210 Nicotine dependence, cigarettes, uncomplicated; Z79.899 Other long term (current) drug therapy; X58.XXXA Exposure to other specified factors, initial encounter; Y99.8 Other external cause status
CPT/HCPCS: 71020; 71250; 74176; 94640; 99283

== ENCOUNTER 2016-10-13 14:11 | Outpatient (CLI) | payer MEDICAID ==
[~2016-10-13] VITALS: Ht 162.6 cm; Wt 130.3 kg
[~2016-10-13 14:11] MED LIST changes: +BENZ-13 PO; +D-ME118S7 PO; +PRD10T PO; +TRAM-42 PO
[2016-10-13] MEDS ORDERED: BENZ-13 PO (14:35)
[2016-10-13] MEDS ORDERED: TRAM50TA2 PO (14:35)
[2016-10-13] MEDS ORDERED: ZOLP5TAB PO (14:35)
[2016-10-13] MEDS ORDERED: CYCL5TAB PO (14:35)
[2016-10-13] MEDS ORDERED: LORA-404 PO (14:35)
[2016-10-13] MEDS ORDERED: RT-ALBUINH IH (14:35)
[2016-10-13 14:39] VITALS: BP 132/75
[2016-10-13 15:00] LABS: BASOPHILS # (AUTO) 0.1 10^3/uL (0.0-0.1); BASOPHILS % (AUTO) 1 % (0-10); EOSINOPHILS # (AUTO) 0.6 10^3/uL (0.0-0.3); EOSINOPHILS % (AUTO) 7 % (0-10); LYMPHOCYTES # (AUTO) 2.1 X 10^3 (1.0-4.0); LYMPHOCYTES % (AUTO) 24 % (12-44); MEAN CORPUSCULAR HEMOGLOBIN 30 PG (25-34); MEAN CORPUSCULAR HGB CONC 32 G/DL (32-36); MEAN CORPUSCULAR VOLUME 93 FL (80-99); MEAN PLATELET VOLUME 9.5 FL (7.4-10.4); MONOCYTES # (AUTO) 0.4 X 10^3 (0.0-1.0); MONOCYTES % (AUTO) 5 % (0-12); NEUTROPHILS # (AUTO) 5.4 X 10^3 (1.8-7.8); NEUTROPHILS % (AUTO) 63 % (42-75); PLATELET COUNT 287 10^3/uL (130-400); RED BLOOD COUNT 4.15 10^6/uL (4.35-5.85); WHITE BLOOD COUNT 8.7 10^3/uL (4.3-11.0)
== END 2016-10-13 15:16 | disposition home or self-care (01) ==
LOC: PREOP 14:11
PROVIDERS: ATTEND Surgery Pediatric Surgery
DX: Z01.812 Encounter for preprocedural laboratory examination (principal); Z11.2 Encounter for screening for other bacterial diseases; K43.9 Ventral hernia without obstruction or gangrene
CPT/HCPCS: 36415; 85025; 87081

== ENCOUNTER 2016-10-16 06:30 | Day surgery (SDC) | payer MEDICAID ==
[~2016-10-16] VITALS: Ht 162.6 cm; Wt 130.3 kg
[~2016-10-16 06:30] MED LIST changes: +CYCL5TAB PO; +LORA-404 PO; +RT-ALBUINH IH; +TRAM50TA2 PO; +ZOLP5TAB PO
[2016-10-16] MEDS ORDERED: FAMOTIDINE 20MG/2ML IV (PEPCID) IV ONE (07:00)
[2016-10-16 07:28] VITALS: BP 126/87
[2016-10-16] MEDS ORDERED: BUP/EPI 0.5% 1:200,000 (SENSORCAINE) 30 ML VIAL ONE (07:29)
[2016-10-16] MEDS: LACTATED RINGERS 1,000 ML IV PRN ×2 (07:43→08:51)
[2016-10-16] MEDS ORDERED: ONDANSETRON 4 MG/2 ML (SDV) Z0FRAN ONE (07:45)
[2016-10-16] MEDS ORDERED: DEXAMETHASONE PF 10 MG/ML (DECADRON) VIAL ONE (07:45)
[2016-10-16] MEDS ORDERED: MIDAZOLAM 2 MG/2 ML (VERSED) VIAL ONE ×2 (07:46→08:24)
[2016-10-16] MEDS ORDERED: fentaNYL INJECTION 100 MCG/2 ML AMP ONE ×2 (07:46→09:08)
[2016-10-16] MEDS ORDERED: SUCCINYLCHOLINE INJ 100 MG/5 ML SYR ONE (07:48)
[2016-10-16] MEDS ORDERED: proPOfol 200 MG/20 ML (DIPRIVAN) VIAL IV ONE (07:48)
[2016-10-16] MEDS ORDERED: NS (IVPB) 50 ML ONE (07:54)
[2016-10-16] MEDS ORDERED: CLINDAMYCIN 600 MG/4ML (CLEOCIN) VIAL ONE (07:54)
[2016-10-16] MEDS ORDERED: LIDOCAINE PF 2% 5 ML (XYLOCAINE) VIAL ONE (07:57)
[2016-10-16] MEDS ORDERED: CLINDAMYCIN INJECTION 600 MG in NS (IVPB) 50 ML IV ONE (08:00)
--- NOTE | 2016-10-16 08:21 | Progress Note-Pre Operative ---
Pre-Operative Progress Note H&P Reviewed The H&P was reviewed, patient examined and no changes noted. Date Seen by Provider: Oct 16, 2016 Time Seen by Provider: 07:40 Date H&P Reviewed: Oct 16, 2016 Time H&P Reviewed: 07:40 Pre-Operative Diagnosis: symptomatic reducible ventral abdominal incisional hernia RITA DIEGO MD Oct 16, 2016 8:21 am
[2016-10-16] MEDS ORDERED: morphine INJ 10 MG/ML 1ML (SYR OR VIAL) IVP PRN (08:30)
[2016-10-16] MEDS ORDERED: ONDANSETRON 4 MG/2 ML (SDV) Z0FRAN IVP PRN ×2 (08:30→10:15)
[2016-10-16] MEDS ORDERED: HYDROcodone/APAP 5 MG/325 MG (LORTAB) TAB PO ONE (08:30)
[2016-10-16] MEDS ORDERED: ACETAMINOPHEN 325 MG TABLET/CAPLET (TYLENOL) PO PRN (08:30)
[2016-10-16] MEDS ORDERED: SEVOFLURANE (ULTANE) 15 ML INHAL SOLN ONE ×2 (09:11→09:52)
[2016-10-16] MEDS ORDERED: ROCURONIUM 50 MG/5 ML (ZEMURON) VIAL IV ONE (09:42)
--- NOTE | 2016-10-16 09:52 | Progress Note-Post Operative ---
Post-Operative Progess Note Surgeon (s)/Roller Embosser (s) Surgeon RITA DIEGO MD Roller Embosser: none Pre-Operative Diagnosis symptomatic reducible ventral abdominal incisional hernia Post-Operative Diagnosis incarcerated ventral abdominal incisional hernia, hernia defect 3x3cm Procedure & Operative Findings Date of Procedure 10/16/16 Procedure Performed/Findings open incarcerated ventral abdominal incisional hernia repair with mesh. Anesthesia Type GET Estimated Blood Loss Estimated blood loss (mL): minimal Specimens/Packing Specimens Removed hernia sac RITA DIEGO MD Oct 16, 2016 9:52 am
[2016-10-16] MEDS ORDERED: FLUC100T PO (09:56)
[2016-10-16] MEDS ORDERED: HYDR-3816 PO (09:56)
--- NOTE | 2016-10-16 09:58 | Discharge Inst-Surgical ---
D/C Lap Instructions-JOHNATHON New, Converted, or Re-Newed RX: RX on Chart Follow Up Appt in 2 weeks Activity as tolerated No driving for 24 hours No driving while on pain medications Incentive Spirometry use every 2 hours while awake Regular Diet Symptoms to Report: Fever over 101 degree F, Nausea/Vomiting Infection Signs and Symptoms to report: Increased redness, Foul odor of wound, Increased drainage Bathing instructions: May shower Operative Area Clean/Dry; Keep incision clean/dry If any problems/questions: Contact your physician or go to Emergency Room RITA DIEGO MD Oct 16, 2016 9:58 am
[2016-10-16] MEDS: morphine INJ 10 MG/ML 1ML (SYR OR VIAL) IVP PRN ×2 (10:10→10:12)
[2016-10-16] MEDS ORDERED: KETOROLAC 30 MG/ML VIAL IVP ONE (10:15)
[2016-10-16] MEDS ORDERED: RT-ALBUTEROL SULF 2.5 MG/3 ML PRE-MIX VIAL ONE (10:28)
[2016-10-16] MEDS ORDERED: RT-ALBUTEROL SULF 2.5 MG/3 ML PRE-MIX VIAL INH ONE (10:45)
[2016-10-16 11:00] VITALS: BP 134/94
[2016-10-16] MEDS ORDERED: HYDROcodone/APAP 5 MG/325 MG (LORTAB) TAB ONE ×2 (11:16→11:19)
[2016-10-16 11:30] VITALS: BP 128/92
[2016-10-16 12:00] VITALS: BP 98/72
--- NOTE | 2016-10-16 12:49 | OPERATIVE REPORT ---
DATE OF SERVICE: 10/16/2016 ATTENDING PRIMARY CARE PHYSICIAN: Dr. Lisseth Rizo. PREOPERATIVE DIAGNOSIS: Symptomatic reducible ventral abdominal incisional hernia. POSTOPERATIVE DIAGNOSIS: Symptomatic incarcerated ventral abdominal incisional hernia with the hernia defect approximately 3 cm x 3 cm in size. PROCEDURE: Open incarcerated ventral abdominal incisional hernia repair with mesh. SURGEON: Dr. Rita Diego. ANESTHESIA: General endotracheal. ESTIMATED BLOOD LOSS: Minimal. FINDINGS: Large hernia sac with omentum within the hernia sac. The fascial defect was approximately 3 cm x 3 cm in size and incarcerated. DISPOSITION: The patient tolerated the procedure well. INDICATIONS: The patient is a 40-year-old female who has had pain in the supraumbilical region for the past 6 months. She reports in the past few months, this has increased in severity. Upon examination, she was found to have a ventral abdominal incisional hernia along the previous incision line for a previous laparoscopic cholecystectomy as well as a hysterectomy. At the time, the hernia was symptomatic; however, it was reducible. Intraoperatively, the hernia was nonreducible and there was omentum within the hernia sac. She stated that she is otherwise doing well and tolerating a regular diet and having normal bowel movements. She does have risk factors for recurrent hernias including obesity as well as COPD. DESCRIPTION OF PROCEDURE: The patient was brought to the operating room, laid supine on the table. After adequate IV pain and sedative medications and general endotracheal intubation, the abdomen was prepped and draped in standard surgical fashion. Marcaine 0.5% with epinephrine was then used to anesthetize the overlying skin in the supraumbilical rim. A crescent-shaped skin incision was then made using a 15 blade. We then proceeded to dissect superiorly, identifying the hernia sac which was relatively large compared to the fascial defect. The entire hernia sac was then dissected out, which was tracking superiorly. We dissected down to the fascial defect and a rim around the fascia was then dissected using electrocautery. The hernia sac was then opened using Metzenbaum scissors with omentum within the hernia sac. The hernia sac as well as the omentum within the hernia sac was then excised using electrocautery with visualization of good hemostasis. The fascial defect was approximately 3 cm x 3 cm in size. The area was swept intraperitoneal with no other hernias identified. A 6.4 x 6.4 coated polypropylene mesh was then placed into the defect. The mesh was then sutured transfascially using interrupted 0 Prolene sutures. Good hemostasis was observed. The subcutaneous tissue was then approximated in layers using 3-0 Vicryl interrupted sutures. Skin was closed using 4-0 Monocryl running subcuticular suture. The wound was then cleaned and covered with Dermabond. The umbilicus was then filled with tonsil sponges followed by sterile gauze, followed by a large Op-Site. A large abdominal binder was then placed as well. The patient tolerated the procedure well. We will start IV and oral pain medications as well as a clear liquid diet. Once she is tolerating clears, has good pain control with oral pain medications and ambulating well, we will discharge her home. She is instructed to do no heavy lifting or exertion for the next 6 weeks. Job ID: [id number] DocumentID: [id number] Dictated Date: 10/16/2016 10:04:32 Mowing Machine Operator Date: 10/16/2016 11:52:49 Dictated By: RITA DIEGO MD
[2016-10-16 12:50] VITALS: BP 128/92
[2016-10-16 13:50] VITALS: BP 98/72
== END 2016-10-16 12:50 | disposition home or self-care (01) ==
LOC: SDC 06:30
PROVIDERS: ATTEND Surgery Pediatric Surgery
DX: K43.0 Incisional hernia with obstruction, without gangrene (principal); J44.9 Chronic obstructive pulmonary disease, unspecified; J45.909 Unspecified asthma, uncomplicated; K21.9 Gastro-esophageal reflux disease without esophagitis; E66.9 Obesity, unspecified; Z68.42 Body mass index [BMI] 45.0-49.9, adult; Z79.899 Other long term (current) drug therapy
CPT/HCPCS: 94664

== ENCOUNTER → 2017-08-20 | Outpatient (CLI) | payer MEDICAID, MEDICARE ==
[~2017-08-20] MED LIST changes: +FLUC100T PO; +HYDR-34 PO
--- NOTE | 2017-08-20 08:34 | Diagnostic Imaging Report ---
INDICATION: Knee popping and swelling. Time of exam: 8:19 a.m. FINDINGS: Multiple views of bilateral knees were obtained. The alignment is normal bilaterally. The joint spaces are well maintained. Articular surfaces are smooth. No fracture, dislocation or effusion is detected. Benign-appearing calcification along the medial femoral epicondyle on the left is noted. IMPRESSION: No acute bony abnormality is detected. Dictated by: Dictated on workstation # [id number]
--- NOTE | 2017-08-20 10:59 | Diagnostic Imaging Report ---
PROCEDURE: US Abdomen, limited. TECHNIQUE: Multiple realtime grayscale images were obtained over the abdomen in various projections. INDICATION: Abdominal pain and right ventral hernia repair in October 2016. FINDINGS: Sonographic interrogation of the area of pain in the right abdomen was performed. No definite recurrent abdominal wall hernia is detected. No fluid collection is seen. IMPRESSION: No abnormality is identified. Dictated by: Dictated on workstation # [id number]
== END ==
LOC: RAD 07:45
PROVIDERS: ATTEND Nurse Practitioner Family
DX: R10.10 Upper abdominal pain, unspecified (principal); M25.462 Effusion, left knee; M25.461 Effusion, right knee
CPT/HCPCS: 76705

== ENCOUNTER → 2018-08-23 | Outpatient (CLI) | payer MEDICARE ==
[~2018-08-23] MED LIST changes: -BENZ-13 PO; +BENZ100C18 PO; +HOLD METFORMIN - RECEIVED CONTRAST 20 ML VIAL IV SCH; +IOHEXOL 350 MG/ML 150 ML (OMNIPAQUE 350) VIAL IV ONE
[2018-08-23 11:00] LABS: BUN/CREATININE RATIO 11; GFR ESTIMATED > 60
[2018-08-23 11:11] LABS: ABG BASE EXCESS -0.9 MMOL/L (-2.5-2.5); ABG OXYGEN SATURATION 96 % (94-100); ABG PCO2 39 MMHG (35-45); ABG PH 7.39 (7.37-7.43); ABG PO2 82 MMHG (79-93); ABG TCO2 24.8 MMOL/L (21.0-31.0)
[2018-08-23 11:13] LABS: ALLENS TEST YES-POS; INSPIRED O2 ROOM AIR; PATIENT TEMP 97.2; VENTILATOR NO
--- NOTE | 2018-08-23 12:42 | Diagnostic Imaging Report ---
PROCEDURE: CT angiography of the chest with contrast. TECHNIQUE: Multiple contiguous axial images were obtained through the chest after uneventful bolus administration of intravenous contrast. 2D reconstructed CTA MIP acquisitions were also performed. Auto Exposure Controls were utilized during the CT exam to meet ALARA standards for radiation dose reduction. INDICATION: Shortness of air and cough. Patient does have history of asthma and COPD. COMPARISON: Correlation is made with prior CT chest from 08/09/2016. FINDINGS: Evaluation of the pulmonary arterial system is without thromboembolism. No definite filling defects are seen within central or lobar branches. Study is somewhat compromised due to patient respiratory motion. Aorta is non-aneurysmal. There is no dissection. No pericardial or pleural fluid is seen. No axillary, hilar or mediastinal lymphadenopathy is detected. The lung carrion appear to be clear. No infiltrate, nodule or mass is detected. Upper abdomen is unremarkable. IMPRESSION: Unremarkable CT angiogram of the chest. Dictated by: Dictated on workstation # [id number]
== END ==
LOC: RT 10:22
PROVIDERS: ATTEND Internal Medicine Critical Care Medicine
DX: R06.00 Dyspnea, unspecified (principal); J44.9 Chronic obstructive pulmonary disease, unspecified; J30.9 Allergic rhinitis, unspecified; R04.2 Hemoptysis; E66.01 Morbid (severe) obesity due to excess calories; Z68.42 Body mass index [BMI] 45.0-49.9, adult
CPT/HCPCS: 36415; 36600; 71275; 82565; 82805; 84520; 94761

== ENCOUNTER → 2018-08-24 | Outpatient (CLI) | payer MEDICARE ==
[~2018-08-24] MED LIST changes: -HOLD METFORMIN - RECEIVED CONTRAST 20 ML VIAL IV SCH; -IOHEXOL 350 MG/ML 150 ML (OMNIPAQUE 350) VIAL IV ONE
== END | disposition home or self-care (01) ==
LOC: PREOP 07:10
PROVIDERS: ATTEND Internal Medicine Critical Care Medicine
DX: Z01.818 Encounter for other preprocedural examination (principal)